=== PATIENT | male | born 1960 | race Two or more races ===

== ENCOUNTER 2017-07-08 17:06 | Inpatient (IN) | payer OTHER ==
[2017-07-08 17:44] VITALS: BMI 28.5
--- NOTE | 2017-07-08 20:57 | HP ---
COWS - Scale Resting Pulse: 2= [place] 101-120 Sweatin= Chills/Flushing Restless Observation: 0= Sits Still Pupil Size: 1= Pupils >than Normal Bone or Joint Aches: 4=Acute Joint/Muscle Pain Runny Nose/ Eye Tearin= Constantly Teary/Runny GI Upset > 30mins: 1= Stomach Cramp Tremor Observation: 2= Slight Tremor Visible Yawning Observation: 0= None Anxiety or Irritability: 2=Irritable/Anxious Goose Flesh Skin: 0=Smooth Skin COWS Score: 17 Admission ROS [facility] Chief Complaint: Opioid withdrawal symptoms Allergies/Adverse Reactions: Allergies Allergy/AdvReac Type Severity Reaction Status Date / Time No Known Allergies Allergy Verified 07/08/17 17:45 History of Present Illness: 56 years old male with a long history of opioid dependence is seeking admission to detox. Patient has never been to detox and reports insignificant period of sobriety. Patient has medical history of HTN, Hep. C, Gonorrhea, Tuberclosis (treated with INH) and depression. Denies suicide attempt and suicidal ideation at this time. Exam Limitations: No Limitations - Ebola screening Have you traveled outside of the country in the last 21 days: No Have you had contact with anyone from an Ebola affected area: No Have you been sick,other than usual withdrawal symptoms: No Do you have a fever: No - Review of Systems Constitutional: Chills, Loss of Appetite, Night Sweats, Changes in sleep EENT: reports: Nose Congestion Respiratory: reports: No Symptoms reported Cardiac: reports: No Symptoms Reported GI: reports: Nausea, Poor Appetite, Poor Fluid Intake, Abdominal cramping : reports: No Symptoms Reported Musculoskeletal: reports: Other (knee pain) Integumentary: reports: Flushing Neuro: reports: Tingling, Tremors Endocrine: reports: No Symptoms Reported Hematology: reports: No Symptoms Reported Psychiatric: reports: Anxious, Depressed Other Systems: Reviewed and Negative Patient History - Patient Medical History Hx Anemia: No Hx Asthma: No Hx Chronic Obstructive Pulmonary Disease (COPD): No Hx Cancer: No Hx Cardiac Disorders: No Hx Congestive Heart Failure: No Hx Hypertension: Yes (Not on medication) Hx Hypercholesterolemia: No Hx Pacemaker: No HX Cerebrovascular Accident: No Hx Seizures: No Hx Diabetes: No Hx Gastrointestinal Disorders: No Hx Liver Disease: Yes (Hep C - not treated) Hx Genitourinary Disorders: No Hx Sexually Transmitted Disorders: Yes (gonorrhea at age 18. - treated) Hx Renal Disease (ESRD): No Hx Thyroid Disease: No Hx Human Immunodeficiency Virus (HIV): No (Never tested and does not want to be tested) Hx Hepatitis C: Yes (Not treated) Hx Depression: Yes (Latuda) Hx Suicide Attempt: No (Denies suicidal ideation) Hx Bipolar Disorder: Yes Hx Schizophrenia: No - Patient Surgical History Past Surgical History: Yes Hx Neurologic Surgery: No Hx Cataract Extraction: No Hx Cardiac Surgery: No Hx Lung Surgery: No Hx Abdominal Surgery: No Hx Appendectomy: No Hx Cholecystectomy: No Hx Genitourinary Surgery: No Hx Orthopedic Surgery: Yes (Bilateral knee repalcement 2000) Anesthesia Reaction: No - PPD History Previous Implant?: Yes (Had TB . Hospitalized and treated with INH for 9 months) Documented Results: Positive w/o proof Implanted On Prior R Admission?: No PPD to be Administered?: No - Reproductive History Patient is a Female of Child Bearing Age (11 -55 yrs old): No (MALE) - Smoking Cessation Smoking history: Current every day smoker Aproximately how many cigarettes per day: 20 Hx Chewing Tobacco Use: No Initiated information on smoking cessation: Yes 'Breaking Loose' booklet given: 07/08/17 - Substance & Tx. History Hx Alcohol Use: No Hx Substance Use: Yes Substance Use Type: Cocaine, Heroin, Marijuana Hx Substance Use Treatment: No - Substances Abused Heroin Route: Inhalation Frequency: Daily Amount used: 8 bags Age of first use: 55 Date of Last Use: 07/08/17 Crack Route: Smoking Frequency: Daily Amount used: $300-400 Age of first use: 25 Date of Last Use: 07/07/17 Marijjauan Route: Smoking Frequency: Daily Amount used: $50 Age of first use: 7 Date of Last Use: 07/07/17 Family Disease History - Family Disease History Family History: Denies Admission Physical Exam BHS - Vital Signs Vital Signs: Vital Signs - 24 hr 07/08/17 17:39 Temperature 98.7 F Pulse Rate 110 H Respiratory 18 Rate Blood Pressure 138/88 - Physical General Appearance: Yes: Moderate Distress HEENTM: Yes: EOMI, Normal ENT Inspection, Normal Voice, ALFRED, Rhinorrhea Respiratory: Yes: Lungs Clear, Normal Breath Sounds, No Respiratory Distress Neck: Yes: Supple Breast: Yes: Breast Exam Deferred Cardiology: Yes: Regular Rhythm, Regular Rate, S1, S2 Abdominal: Yes: Normal Bowel Sounds, Soft Genitourinary: Yes: Within Normal Limits Back: Yes: Normal Inspection Musculoskeletal: Yes: Back pain, Muscle Pain Extremities: Yes: Tremors Neurological: Yes: Alert, Normal Mood/Affect Integumentary: Yes: Warm Lymphatic: Yes: Within Normal Limits - Diagnostic (1) Opioid dependence with withdrawal Current Visit: Yes Status: Chronic (2) Cocaine dependence, uncomplicated Current Visit: Yes Status: Chronic (3) Cannabis dependence, uncomplicated Current Visit: Yes Status: Chronic (4) Hep C w/o coma, chronic Current Visit: Yes Status: Chronic (5) HTN (hypertension) Current Visit: Yes Status: Chronic Qualifiers: Hypertension type: essential hypertension Qualified Code(s): I10 - Essential (primary) hypertension (6) Depression Current Visit: Yes Status: Chronic Qualifiers: Depression Type: unspecified Qualified Code(s): F32.9 - Major depressive disorder, single episode, unspecified (7) Nicotine dependence Current Visit: Yes Status: Chronic Cleared for Admission [facility] - Detox or Rehab [facility] Level of Care: Medically Managed Detox Regimen/Protocol: Methadone [facility] Breath Alcohol Content Breath Alcohol Content: 0 Urine Drug Screen - Results Drug Screen Negative: No Urine Drug Screen Results: THC-Marijuana, PRANAV-Cocaine, OPI-Opiates, TCA- Tricyclic Antidepress
[2017-07-08] MEDS ORDERED: P-EPHED 60MG/TRIPROLIDI 2.5MG TABLET PO PRN (21:16)
[2017-07-08] MEDS ORDERED: MENTHOL/PHENOL 1 EACH UD MM PRN (21:16)
[2017-07-08] MEDS ORDERED: MAG HYDROX/AL HYDROX/SIMETH 30 ML UNIT-DOSE CUP PO PRN (21:16)
[2017-07-08] MEDS ORDERED: MAGNESIUM HYDROX 2400MG/30ML ORAL SUSPENSION 30 ML CUP PO PRN (21:16)
[2017-07-08] MEDS ORDERED: ACETAMINOPHEN 325 MG TABLET (FP) PO PRN (21:16)
[2017-07-08] MEDS ORDERED: NICOTINE POLACRILEX 2 MG GUM BC PRN (21:16)
[2017-07-08] MEDS ORDERED: MAGNESIUM CITRATE 300 ML BOTTLE PO PRN (21:16)
[2017-07-08] MEDS ORDERED: guaiFENesin/D-METHORPHAN HB 10 ML UNIT-DOSE CUPS PO PRN (21:16)
[2017-07-08] MEDS ORDERED: LOPERAMIDE HCL 2 MG CAPSULE PO PRN (21:16)
[2017-07-08] MEDS ORDERED: IBUPROFEN 400 MG TABLET (FP) PO PRN (21:16)
[2017-07-08] MEDS ORDERED: METHADONE HCL 10 MG TABLET (FOR DETOX USE ONLY) PO ONE ×2 (21:16→23:00)
[2017-07-08] MEDS: diazePAM 5 MG TABLET PO PRN (21:55)
[2017-07-08] MEDS: THIAMINE HCL 100 MG TABLET (FP) PO SCH (21:56)
[2017-07-08 23:45] LABS: URINE APPEARANCE TURBID; URINE BILIRUBIN NEGATIVE (NEGATIVE); URINE BLOOD NEGATIVE (NEGATIVE); URINE COLOR YELLOW; URINE GLUCOSE (UA) NEGATIVE (NEGATIVE); URINE KETONE NEGATIVE (NEGATIVE); URINE LEUK ESTERASE NEGATIVE (NEGATIVE); URINE NITRITE NEGATIVE (NEGATIVE)
[2017-07-08 23:47] LABS: URINE PROTEIN 1+ (NEGATIVE)
[2017-07-09] MEDS ORDERED: hydrOXYzine PAMOATE 50 MG CAPSULE (FP) PO ONE (00:16)
[2017-07-09 00:54] LABS: URINE MUCUS MANY
[2017-07-09] MEDS ORDERED: METHADONE HCL 10 MG TABLET (FOR DETOX USE ONLY) PO ONE (10:00)
[2017-07-09 10:19] LABS: HEMATOCRIT 40.7 % (35.4-49); HEMOGLOBIN 13.9 GM/dL (11.7-16.9); MCH 27.9 pg (25.7-33.7); MEAN CELL VOLUME 82.1 fl (80-96); PLATELET COUNT 173 K/MM3 (134-434); RBC 4.96 M/mm3 (4.00-5.60); RDW 15.5 % (11.9-15.9); WHITE BLOOD COUNT 8.9 K/mm3 (4.0-10.0)
[2017-07-09 10:27] LABS: CHLORIDE 107 mmol/L (98-107); POTASSIUM 3.8 mmol/L (3.5-5.1); SODIUM 137 mmol/L (136-145)
--- NOTE | 2017-07-09 10:37 | CONSULT ---
[facility] Psychiatric Consult - Data Date of interview: 07/09/17 Admission source: [facility] Identifying data: First admission to [facility] for this 56 y/o [place] male from [place] ancestry seeking detox treatment on for heroin, cannabis and cocaine dependence.Patient is single,a father of four,domiciled, currently unemployed (disabled) and supported on SSI benefits. Substance Abuse History: Discussed with patient.Mr Norton admits to an 8 month history of heroin abuse (snorts one bundle daily) + cocaine abuse via smoking since age 25 (300-400 dollars a day) + 50 dollars/day on marihuana (from age 7 onwards).More details in current [facility] report : Smoking history: Current every day smoker. Aproximately how many cigarettes per day: 20. Hx Chewing Tobacco Use: No. Initiated information on smoking cessation: Yes. 'Breaking Loose' booklet given: 07/08/17. - Substance & Tx. History. Hx Alcohol Use: No. Hx Substance Use: Yes. Substance Use Type: Cocaine, Heroin, Marijuana. Hx Substance Use Treatment: No. - Substances Abused. Heroin. Route: Inhalation. Frequency: Daily. Amount used: 8 bags. Age of first use: 55. Date of Last Use: 07/08/17. Crack. Route: Smoking. Frequency: Daily. Amount used: $300-400. Age of first use: 25. Date of Last Use: 07/07/17. Marijjauan. Route: Smoking. Frequency: Daily. Amount used: $50. Age of first use: 7. Date of Last Use: 07/07/17 Medical History: Hypertension,hepatitis C,antecedent of tuberculosis ( hospitalized and treated with INH),past treatment for gonorrhea and orthosurgery (bilateral knee replacement in 2000). Psychiatric History: Patient reports a history of two psychiatric hospitalizations ([facility] in [facility] and [facility]).Diagnosed with Bipolar Disorder.Currently prescribed latuda 60 mg/hs + thorazine 200 mg/day + ambien 10 mg/hs.Mr Norton sees a psychiatrist,Dr Danika Raines, at the [facility] in [facility] [place].Denies history of suicide attempts. Physical/Sexual Abuse/Trauma History: Patient denies. Additional Comment: Urine Drug Screen Results: THC-Marijuana, PRANAV-Cocaine, OPI- Opiates, TCA-Tricyclic Antidepressant.Noted. Mental Status Exam - Mental Status Exam Alert and Oriented to: Time, Place, Person Cognitive Function: Good Patient Appearance: Well Groomed Mood: Apprehensive, Hopeful Affect: Appropriate, Normal Range Patient Behavior: Fatigued, Appropriate, Cooperative Speech Pattern: Clear, Appropriate Voice Loudness: Normal Thought Process: Goal Oriented Thought Disorder: Not Present Hallucinations: Denies Suicidal Ideation: Denies Homicidal Ideation: Denies Insight/Judgement: Poor Sleep: Poorly, Difficulty falling asleep Appetite: Good Muscle strength/Tone: Normal Gait/Station: Normal Psychiatric Findings - Problem List ([place] 1, 2,3) (1) Opioid dependence with withdrawal Current Visit: Yes Status: Acute (2) Cannabis dependence, uncomplicated Current Visit: Yes Status: Acute (3) Cocaine dependence, uncomplicated Current Visit: Yes Status: Acute (4) Nicotine dependence Current Visit: Yes Status: Acute Qualifiers: Nicotine product type: cigarettes Substance use status: uncomplicated Qualified Code(s): F17.210 - Nicotine dependence, cigarettes, uncomplicated (5) Bipolar disorder Current Visit: Yes Status: Chronic (6) Insomnia Current Visit: Yes Status: Acute - Initial Treatment Plan Initial Treatment Plan: Psychoeducation.Sleep hygiene discussed.Orientation to unit.Detoxification in progress.Medications : thorazine 200 mg po hs + latuda 40 mg po daily.Ambien is held until further orders.Side effects/benefits of both drugs are discussed with the patient.Mr Norton is in agreement with this plan of care.Observation.Medications are verified via review of pharmacy claims of 06/28/17 at [facility] # [id number].NO scripts needed at discharge from [facility] (patient endorses an available medication supply at home).Will get refills from his [facility] psychiatrist (appointment already scheduled as per patient) .
[2017-07-09 10:42] LABS: ALBUMIN 3.6 g/dl (3.4-5.0); ALK PHOS 119 U/L (45-117); ANION GAP 1 (8-16); BILIRUBIN,TOTAL 0.3 mg/dL (0.2-1.0); BLOOD UREA NITROGEN 22 mg/dL (7-18); CALCIUM 8.3 mg/dL (8.5-10.1); CO2 29 mmol/L (21-32); CREATININE 0.8 mg/dL (0.7-1.3); GLUCOSE,RANDOM 137 mg/dL (74-106); SGOT/AST 20 U/L (15-37); SGPT/ALT 35 U/L (12-78); TOT PROT 6.7 g/dl (6.4-8.2)
[2017-07-09] MEDS: PRENATAL VITAMINS W/ FOLIC ACID TABLET (FP) PO SCH (10:42)
[2017-07-09] MEDS: NICOTINE 14 MG/24 HOURS TOPICAL PATCH TD SCH (10:43)
[2017-07-09] MEDS: diazePAM 5 MG TABLET PO PRN ×2 (10:44→22:24)
[2017-07-09] MEDS ORDERED: FLU VACCINE QUAD 60 MCG/0.5 ML (MDV 17-18) IM ONE (12:00)
--- NOTE | 2017-07-09 13:00 | PN ---
BHS COWS - Scale Resting Pulse: 2= [place] 101-120 Sweatin= Chills/Flushing Restless Observation: 1= Difficult to Sit Still Pupil Size: 0= Normal to Room Light Bone or Joint Aches: 2= Severe Diffuse Aches Runny Nose/ Eye Tearin= None GI Upset > 30mins: 0= None Tremor Observation of Outstretched Hands: 2= Slight Tremor Visible Yawning Observation: 1= 1-2x During Session Anxiety or Irritability: 2=Irritable/Anxious Goose Flesh Skin: 3=Piloerection COWS Score: 14 BHS Progress Note (SOAP) Subjective: Body Aches, Sweating, Anxious, Diarrhea, Interrupted Sleep. Objective: PATIENT A & O X 3, OBSERVED AMBULATING ON UNIT. NO ACUTE DISTRESS. 07/09/17 13:01 Vital Signs Temperature 97.4 F L 07/09/17 09:47 Pulse Rate 107 H 07/09/17 09:47 Respiratory Rate 16 07/09/17 09:47 Blood Pressure 114/73 07/09/17 09:47 O2 Sat by Pulse Oximetry (%) Laboratory Tests 07/08/17 07/09/17 07/09/17 18:25 07:00 07:00 WBC 8.9 RBC 4.96 Hgb 13.9 Hct 40.7 MCV 82.1 MCH 27.9 MCHC 34.0 RDW 15.5 Plt Count 173 MPV 9.0 Sodium 137 Potassium 3.8 Chloride 107 Carbon Dioxide 29 Anion Gap 1 L BUN 22 H Creatinine 0.8 Creat Clearance w eGFR > 60 Random Glucose 137 H Calcium 8.3 L Total Bilirubin 0.3 AST 20 ALT 35 Alkaline Phosphatase 119 H Total Protein 6.7 Albumin 3.6 Urine Color Yellow Urine Appearance Turbid Urine pH 5.0 Ur Specific [place] 1.026 Urine Protein 1+ H Urine Glucose (UA) Negative Urine Ketones Negative Urine Blood Negative Urine Nitrite Negative Urine Bilirubin Negative Urine Urobilinogen 2.0 Ur Leukocyte Esterase Negative Urine WBC (Auto) None Urine RBC (Auto) None Urine Mucus Many RPR Titer 07/09/17 07:00 WBC RBC Hgb Hct MCV MCH MCHC RDW Plt Count MPV Sodium Potassium Chloride Carbon Dioxide Anion Gap BUN Creatinine Creat Clearance w eGFR Random Glucose Calcium Total Bilirubin AST ALT Alkaline Phosphatase Total Protein Albumin Urine Color Urine Appearance Urine pH Ur Specific [place] Urine Protein Urine Glucose (UA) Urine Ketones Urine Blood Urine Nitrite Urine Bilirubin Urine Urobilinogen Ur Leukocyte Esterase Urine WBC (Auto) Urine RBC (Auto) Urine Mucus RPR Titer Nonreactive LABS NOTED. Assessment: 07/09/17 13:01 WITHDRAWAL SYMPTOMS. Plan: CONTINUE DETOX.
[2017-07-09] MEDS ORDERED: chlorproMAZINE HCL 100 MG TABLET PO SCH (22:00)
[2017-07-09] MEDS: THIAMINE HCL 100 MG TABLET (FP) PO SCH (22:23)
[2017-07-09] MEDS ORDERED: chlorproMAZINE HCL 25 MG TABLET PO SCH (22:29)
[2017-07-09] MEDS: chlorproMAZINE HCL 25 MG TABLET PO SCH (23:55)
--- NOTE | 2017-07-10 01:01 | EKG ---
Test Reason : Blood Pressure : / mmHG Vent. Rate : 100 BPM Atrial Rate : 100 BPM P-R Int : 150 ms QRS Dur : 078 ms QT Int : 328 ms P-R-T Axes : 038 071 044 degrees QTc Int : 423 ms NORMAL SINUS RHYTHM NONSPECIFIC T WAVE ABNORMALITY ABNORMAL ECG NO PREVIOUS ECGS AVAILABLE Confirmed by MARIANELA VELASQUEZ, FÉLIX ([id number]) on 07/10/2017 1:01:10 AM Referred By: Confirmed By:FÉLIX BEAR MD
[2017-07-10] MEDS: diazePAM 5 MG TABLET PO PRN ×5 (06:17→23:31)
[2017-07-10] MEDS ORDERED: METHADONE HCL 5 MG TABLET (FOR DETOX USE ONLY) PO ONE (10:00)
[2017-07-10] MEDS ORDERED: LURASIDONE HCL 20 MG TABLET PO SCH (10:00)
[2017-07-10] MEDS: PRENATAL VITAMINS W/ FOLIC ACID TABLET (FP) PO SCH (10:22)
[2017-07-10] MEDS: LURASIDONE HCL 40 MG TABLET PO SCH (10:23)
[2017-07-10] MEDS: NICOTINE 14 MG/24 HOURS TOPICAL PATCH TD SCH (10:24)
--- NOTE | 2017-07-10 12:59 | PN ---
BHS COWS - Scale Resting Pulse: 2= [place] 101-120 Sweatin= Chills/Flushing Restless Observation: 1= Difficult to Sit Still Pupil Size: 0= Normal to Room Light Bone or Joint Aches: 2= Severe Diffuse Aches Runny Nose/ Eye Tearin= None GI Upset > 30mins: 2= Nausea/Diarrhea Tremor Observation of Outstretched Hands: 2= Slight Tremor Visible Yawning Observation: 2= >3x During Session Anxiety or Irritability: 2=Irritable/Anxious Goose Flesh Skin: 0=Smooth Skin COWS Score: 14 BHS Progress Note (SOAP) Subjective: Body Aches, Tremors, Anxious, Sweating, Vomiting, Stomach Cramping. Objective: PATIENT A & O X 2 (UNCERTAIN ABOUT CURRENT DAY/ DATE. NO ACUTE DISTRESS. 07/10/17 12:57 Vital Signs Temperature 96.5 F L 07/10/17 09:51 Pulse Rate 106 H 07/10/17 09:51 Respiratory Rate 20 07/10/17 09:51 Blood Pressure 128/82 07/10/17 09:51 O2 Sat by Pulse Oximetry (%) Laboratory Tests 07/08/17 07/09/17 07/09/17 18:25 07:00 07:00 WBC 8.9 RBC 4.96 Hgb 13.9 Hct 40.7 MCV 82.1 MCH 27.9 MCHC 34.0 RDW 15.5 Plt Count 173 MPV 9.0 Sodium 137 Potassium 3.8 Chloride 107 Carbon Dioxide 29 Anion Gap 1 L BUN 22 H Creatinine 0.8 Creat Clearance w eGFR > 60 Random Glucose 137 H Calcium 8.3 L Total Bilirubin 0.3 AST 20 ALT 35 Alkaline Phosphatase 119 H Total Protein 6.7 Albumin 3.6 Urine Color Yellow Urine Appearance Turbid Urine pH 5.0 Ur Specific [place] 1.026 Urine Protein 1+ H Urine Glucose (UA) Negative Urine Ketones Negative Urine Blood Negative Urine Nitrite Negative Urine Bilirubin Negative Urine Urobilinogen 2.0 Ur Leukocyte Esterase Negative Urine WBC (Auto) None Urine RBC (Auto) None Urine Mucus Many RPR Titer 07/09/17 07:00 WBC RBC Hgb Hct MCV MCH MCHC RDW Plt Count MPV Sodium Potassium Chloride Carbon Dioxide Anion Gap BUN Creatinine Creat Clearance w eGFR Random Glucose Calcium Total Bilirubin AST ALT Alkaline Phosphatase Total Protein Albumin Urine Color Urine Appearance Urine pH Ur Specific [place] Urine Protein Urine Glucose (UA) Urine Ketones Urine Blood Urine Nitrite Urine Bilirubin Urine Urobilinogen Ur Leukocyte Esterase Urine WBC (Auto) Urine RBC (Auto) Urine Mucus RPR Titer Nonreactive LABS NOTED. Assessment: 07/10/17 12:58 WITHDRAWAL SYMPTOMS. Plan: CONTINUE DETOX.
[2017-07-10] MEDS: chlorproMAZINE HCL 25 MG TABLET PO SCH (22:10)
[2017-07-10] MEDS: THIAMINE HCL 100 MG TABLET (FP) PO SCH (22:10)
[2017-07-11] MEDS: diazePAM 5 MG TABLET PO PRN ×4 (05:40→21:08)
[2017-07-11] MEDS ORDERED: METHADONE HCL 5 MG TABLET (FOR DETOX USE ONLY) PO ONE (10:00)
[2017-07-11] MEDS: LURASIDONE HCL 40 MG TABLET PO SCH (10:30)
[2017-07-11] MEDS: PRENATAL VITAMINS W/ FOLIC ACID TABLET (FP) PO SCH (10:30)
[2017-07-11] MEDS: NICOTINE 14 MG/24 HOURS TOPICAL PATCH TD SCH (10:30)
--- NOTE | 2017-07-11 14:32 | PN ---
BHS Progress Note (SOAP) Subjective: Tremors, Anxious. Objective: PATIENT A & O X 3, OBSERVED AMBULATING ON UNIT. NO ACUTE DISTRESS. 07/11/17 14:28 Vital Signs Temperature 96.3 F L 07/11/17 13:53 Pulse Rate 98 H 07/11/17 13:53 Respiratory Rate 19 07/11/17 13:53 Blood Pressure 137/86 07/11/17 13:53 O2 Sat by Pulse Oximetry (%) Laboratory Tests 07/08/17 07/09/17 07/09/17 18:25 07:00 07:00 WBC 8.9 RBC 4.96 Hgb 13.9 Hct 40.7 MCV 82.1 MCH 27.9 MCHC 34.0 RDW 15.5 Plt Count 173 MPV 9.0 Sodium 137 Potassium 3.8 Chloride 107 Carbon Dioxide 29 Anion Gap 1 L BUN 22 H Creatinine 0.8 Creat Clearance w eGFR > 60 Random Glucose 137 H Calcium 8.3 L Total Bilirubin 0.3 AST 20 ALT 35 Alkaline Phosphatase 119 H Total Protein 6.7 Albumin 3.6 Urine Color Yellow Urine Appearance Turbid Urine pH 5.0 Ur Specific [place] 1.026 Urine Protein 1+ H Urine Glucose (UA) Negative Urine Ketones Negative Urine Blood Negative Urine Nitrite Negative Urine Bilirubin Negative Urine Urobilinogen 2.0 Ur Leukocyte Esterase Negative Urine WBC (Auto) None Urine RBC (Auto) None Urine Mucus Many RPR Titer 07/09/17 07:00 WBC RBC Hgb Hct MCV MCH MCHC RDW Plt Count MPV Sodium Potassium Chloride Carbon Dioxide Anion Gap BUN Creatinine Creat Clearance w eGFR Random Glucose Calcium Total Bilirubin AST ALT Alkaline Phosphatase Total Protein Albumin Urine Color Urine Appearance Urine pH Ur Specific [place] Urine Protein Urine Glucose (UA) Urine Ketones Urine Blood Urine Nitrite Urine Bilirubin Urine Urobilinogen Ur Leukocyte Esterase Urine WBC (Auto) Urine RBC (Auto) Urine Mucus RPR Titer Nonreactive LABS NOTED. Assessment: 07/11/17 14:29 WITHDRAWAL SYMPTOMS. Plan: CONTINUE DETOX. INCREASE DAILY PO FLUID INTAKE. PATIENT REPORTS THAT SEVERITY LEVEL OF CURRENT DETOX SYMPTOMS IS TOLERABLE AND THAT HE FEELS WELL OVERALL. AT PATIENT'S REQUEST, CURRENT DETOX MEDICATION REGIMEN (METHADONE) MODIFIED SO THAT PATIENT MAY BE DISCHARGED ON 07/12/2017.
[2017-07-11] MEDS: THIAMINE HCL 100 MG TABLET (FP) PO SCH (22:24)
[2017-07-11] MEDS: chlorproMAZINE HCL 25 MG TABLET PO SCH (22:24)
[2017-07-12] MEDS ORDERED: METHADONE HCL 5 MG TABLET (FOR DETOX USE ONLY) PO ONE (06:00)
[2017-07-12 06:40] VITALS: BP 125/79; PULSE 90; TEMP 96.7
[2017-07-12] MEDS ORDERED: METHADONE HCL 10 MG TABLET (FOR DETOX USE ONLY) PO ONE (10:00)
--- NOTE | 2017-07-12 19:41 | PN ---
BHS Progress Note (SOAP) Subjective: Patient denies any current detox symptoms and reports that he is feeling well overall. Objective: PATIENT A & O X 3. NO ACUTE DISTRESS. 07/12/17 19:39 Vital Signs Temperature 96.7 F L 07/12/17 06:39 Pulse Rate 90 07/12/17 06:39 Respiratory Rate 18 07/12/17 06:39 Blood Pressure 125/79 07/12/17 06:39 O2 Sat by Pulse Oximetry (%) Laboratory Tests 07/08/17 07/09/17 07/09/17 18:25 07:00 07:00 WBC 8.9 RBC 4.96 Hgb 13.9 Hct 40.7 MCV 82.1 MCH 27.9 MCHC 34.0 RDW 15.5 Plt Count 173 MPV 9.0 Sodium 137 Potassium 3.8 Chloride 107 Carbon Dioxide 29 Anion Gap 1 L BUN 22 H Creatinine 0.8 Creat Clearance w eGFR > 60 Random Glucose 137 H Calcium 8.3 L Total Bilirubin 0.3 AST 20 ALT 35 Alkaline Phosphatase 119 H Total Protein 6.7 Albumin 3.6 Urine Color Yellow Urine Appearance Turbid Urine pH 5.0 Ur Specific [place] 1.026 Urine Protein 1+ H Urine Glucose (UA) Negative Urine Ketones Negative Urine Blood Negative Urine Nitrite Negative Urine Bilirubin Negative Urine Urobilinogen 2.0 Ur Leukocyte Esterase Negative Urine WBC (Auto) None Urine RBC (Auto) None Urine Mucus Many RPR Titer 07/09/17 07:00 WBC RBC Hgb Hct MCV MCH MCHC RDW Plt Count MPV Sodium Potassium Chloride Carbon Dioxide Anion Gap BUN Creatinine Creat Clearance w eGFR Random Glucose Calcium Total Bilirubin AST ALT Alkaline Phosphatase Total Protein Albumin Urine Color Urine Appearance Urine pH Ur Specific [place] Urine Protein Urine Glucose (UA) Urine Ketones Urine Blood Urine Nitrite Urine Bilirubin Urine Urobilinogen Ur Leukocyte Esterase Urine WBC (Auto) Urine RBC (Auto) Urine Mucus RPR Titer Nonreactive LABS NOTED. Assessment: 07/12/17 19:39 COMPLETION OF DETOX REGIMEN. Plan: PATIENT SCHEDULED FOR DISCHARGE FROM DETOX TODAY. PATIENT WILL ATTEND OUTPATIENT PROGRAM AT [facility] ([place], [place] FOR AFTERCARE.
--- NOTE | 2017-07-12 19:46 | DS ---
[facility] Detox Discharge Summary Admission Date: 07/08/17 Discharge Date: 07/12/17 - History Present History: Cannabis Dependence, Cocaine Dependence, Opioid Dependence Additional Comments: PATIENT GOING HOME, WILL ATTEND [facility] ([place] OUTPATIENT PROGRAM FOR AFTERCARE. PATIENT WAS DISCHARGED FROM DETOX UNIT IN STABLE MEDICAL CONDITION. Pertinent Past History: HTN, Depression, Nicotine Dependence, Hep C, Bipolar Disorder, Insomnia. - Physical Exam Results Vital Signs: Vital Signs Temperature 96.7 F L 07/12/17 06:39 Pulse Rate 90 07/12/17 06:39 Respiratory Rate 18 07/12/17 06:39 Blood Pressure 125/79 07/12/17 06:39 O2 Sat by Pulse Oximetry (%) Pertinent Admission Physical Exam Findings: WITHDRAWAL SYMPTOMS. Laboratory Tests 07/08/17 07/09/17 07/09/17 18:25 07:00 07:00 WBC 8.9 RBC 4.96 Hgb 13.9 Hct 40.7 MCV 82.1 MCH 27.9 MCHC 34.0 RDW 15.5 Plt Count 173 MPV 9.0 Sodium 137 Potassium 3.8 Chloride 107 Carbon Dioxide 29 Anion Gap 1 L BUN 22 H Creatinine 0.8 Creat Clearance w eGFR > 60 Random Glucose 137 H Calcium 8.3 L Total Bilirubin 0.3 AST 20 ALT 35 Alkaline Phosphatase 119 H Total Protein 6.7 Albumin 3.6 Urine Color Yellow Urine Appearance Turbid Urine pH 5.0 Ur Specific [place] 1.026 Urine Protein 1+ H Urine Glucose (UA) Negative Urine Ketones Negative Urine Blood Negative Urine Nitrite Negative Urine Bilirubin Negative Urine Urobilinogen 2.0 Ur Leukocyte Esterase Negative Urine WBC (Auto) None Urine RBC (Auto) None Urine Mucus Many RPR Titer 07/09/17 07:00 WBC RBC Hgb Hct MCV MCH MCHC RDW Plt Count MPV Sodium Potassium Chloride Carbon Dioxide Anion Gap BUN Creatinine Creat Clearance w eGFR Random Glucose Calcium Total Bilirubin AST ALT Alkaline Phosphatase Total Protein Albumin Urine Color Urine Appearance Urine pH Ur Specific [place] Urine Protein Urine Glucose (UA) Urine Ketones Urine Blood Urine Nitrite Urine Bilirubin Urine Urobilinogen Ur Leukocyte Esterase Urine WBC (Auto) Urine RBC (Auto) Urine Mucus RPR Titer Nonreactive LABS NOTED. - Treatment Hospital Course: Detox Protocol Followed, Detoxed Safely, Responded well, Discharged Condition Good Patient has Accepted a Rehab Referral to: [facility] OUTPATIENT PROGRAM ([place], [place]) - Medication Discharge Medications: Ambulatory Orders Lurasidone HCl [Latuda] 60 mg PO DAILY 07/08/17 - Diagnosis (1) Cannabis dependence, uncomplicated Status: Acute (2) Cocaine dependence, uncomplicated Status: Acute (3) Nicotine dependence Status: Acute Qualifiers: Nicotine product type: cigarettes Substance use status: uncomplicated Qualified Code(s): F17.210 - Nicotine dependence, cigarettes, uncomplicated (4) Opioid dependence with withdrawal Status: Acute (5) Depression Status: Chronic Qualifiers: Depression Type: unspecified Qualified Code(s): F32.9 - Major depressive disorder, single episode, unspecified (6) HTN (hypertension) Status: Chronic Qualifiers: Hypertension type: essential hypertension Qualified Code(s): I10 - Essential (primary) hypertension (7) Hep C w/o coma, chronic Status: Chronic (8) Insomnia Status: Acute Qualifiers: Insomnia type: unspecified Qualified Code(s): G47.00 - Insomnia, unspecified (9) Bipolar disorder Status: Chronic Qualifiers: Active/Remission status: remission status unspecified Qualified Code(s): F31.9 - Bipolar disorder, unspecified - AMA Did Patient Leave Against Medical Advice: No
[2017-07-13] MEDS ORDERED: METHADONE HCL 5 MG TABLET (FOR DETOX USE ONLY) PO ONE (06:00)
== END 2017-07-12 09:32 | disposition home or self-care (01) | DRG 773 ==
LOC: YASAS 17:06 → Y3N 20:50
PROVIDERS: ADMIT Internal Medicine; ATTEND Internal Medicine
PROC: HZ2ZZZZ Detoxification Services for Substance Abuse Treatment (ICD-10-PCS; principal; 2017-07-09)
DX: F11.23 Opioid dependence with withdrawal (principal); F14.20 Cocaine dependence, uncomplicated; F12.20 Cannabis dependence, uncomplicated; F17.210 Nicotine dependence, cigarettes, uncomplicated; F31.9 Bipolar disorder, unspecified; I10 Essential (primary) hypertension; G47.00 Insomnia, unspecified; B18.2 Chronic viral hepatitis C
CPT/HCPCS: 36415; 71046-TC-FY; 80053; 81003; 81015; 85027; 86593; 90688; 93005; 93010; G0008

== ENCOUNTER 2017-11-21 17:51 | Inpatient (IN) | payer OTHER ==
[2017-11-21 18:47] VITALS: BMI 26.4
--- NOTE | 2017-11-21 22:06 | HP ---
COWS - Scale Resting Pulse: 2= MT 101-120 Sweatin= Beads of Sweat on Face Restless Observation: 5= Unable to Sit Still Pupil Size: 1= Pupils >than Normal Bone or Joint Aches: 4=Acute Joint/Muscle Pain Runny Nose/ Eye Tearin= Nasal Congestion GI Upset > 30mins: 2= Nausea/Diarrhea Tremor Observation: 2= Slight Tremor Visible Yawning Observation: 0= None Anxiety or Irritability: 4=Extreme Anxiety Goose Flesh Skin: 0=Smooth Skin COWS Score: 24 CIWA Score - CIWA Score Nausea/Vomitin-No Nausea/No Vomiting Muscle Tremors: 4-Moderate,w/Arms Extend Anxiety: 5 Agitation: 4-Moderately Restless Paroxysmal Sweats: 4-Forehead w/Sweat Beads Orientation: 0-Oriented Tacttile Disturbances: 3-Moderate Itch/Numb/Burn Auditory Disturbances: 0-None Visual Disturbances: 0-None Headache: 0-None Present CIWA-Ar Total Score: 20 Admission [facility] - HPI Chief Complaint: C/O WITHDRAWAL SX'S FROM HEROIN Allergies/Adverse Reactions: Allergies Allergy/AdvReac Type Severity Reaction Status Date / Time No Known Allergies Allergy Verified 11/21/17 21:57 History of Present Illness: 57 Y.O. MALE WITH LONG HX/O POLYSUBSTANCE ABUSE HERE FOR HEROIN DETOX. CLIENT IS KNOWN TO THIS PROGRAM. LAST HERE A FEW MONTHS AGO. SELF REFERRED. REPORTS LONGEST CLEAN TIME 6 YEARS. REPORTS PAST HX OF DRUG OVERDOSE. DENIES SI/HI, SEIZURE Exam Limitations: No Limitations - Ebola screening Have you traveled outside of the country in the last 21 days: No Have you had contact with anyone from an Ebola affected area: No Have you been sick,other than usual withdrawal symptoms: No Do you have a fever: No - Review of Systems Constitutional: Chills, Diaphoresis, Loss of Appetite, Malaise, Night Sweats, Changes in sleep, Unintentional Wgt. Loss EENT: reports: Nose Congestion, Dental Problems (MISSING TEETH) Respiratory: reports: No Symptoms reported Cardiac: reports: No Symptoms Reported GI: reports: Poor Appetite, Poor Fluid Intake, Abdominal cramping : reports: No Symptoms Reported Musculoskeletal: reports: Back Pain Integumentary: reports: Flushing, Sweating Neuro: reports: No Symptoms reported Endocrine: reports: No Symptoms Reported Hematology: reports: No Symptoms Reported Psychiatric: reports: Anxious, Depressed Other Systems: Reviewed and Negative Patient History - Patient Medical History Hx Anemia: No Hx Asthma: No Hx Chronic Obstructive Pulmonary Disease (COPD): No Hx Cancer: No Hx Cardiac Disorders: No Hx Congestive Heart Failure: No Hx Hypertension: Yes (Not on medication) Hx Hypercholesterolemia: No Hx Pacemaker: No HX Cerebrovascular Accident: No Hx Seizures: No Hx Diabetes: No Hx Gastrointestinal Disorders: No Hx Liver Disease: Yes (Hep C - not treated) Hx Genitourinary Disorders: No Hx Sexually Transmitted Disorders: Yes (gonorrhea at age 18. - treated) Hx Renal Disease (ESRD): No Hx Thyroid Disease: No Hx Human Immunodeficiency Virus (HIV): No (Never tested and does not want to be tested) Hx Hepatitis C: Yes (Not treated) Hx Depression: Yes (Latuda) Hx Suicide Attempt: Yes (FEW MONTHS AGO) Hx Bipolar Disorder: Yes Hx Schizophrenia: No Other Medical History: DENIES - Patient Surgical History Past Surgical History: Yes Hx Neurologic Surgery: No Hx Cataract Extraction: No Hx Cardiac Surgery: No Hx Lung Surgery: No Hx Breast Surgery: No Hx Breast Biopsy: No Hx Abdominal Surgery: No Hx Appendectomy: No Hx Cholecystectomy: No Hx Genitourinary Surgery: No Hx Section: No Hx Orthopedic Surgery: Yes (Bilateral knee repalcement 2000) Anesthesia Reaction: No - PPD History Previous Implant?: Yes Documented Results: Positive w/o proof Implanted On Prior [facility] Admission?: No Results: NEG CXR 06/2017 PPD to be Administered?: No - Smoking Cessation Smoking history: Current every day smoker Aproximately how many cigarettes per day: 20 Cigars Per Day: 0 Hx Chewing Tobacco Use: No Initiated information on smoking cessation: Yes 'Breaking Loose' booklet given: 11/21/17 - Substance & Tx. History Hx Alcohol Use: Yes Hx Substance Use: Yes Substance Use Type: Alcohol Hx Substance Use Treatment: Yes ([facility]) - Substances Abused Heroin Route: SNIFF Frequency: Daily Amount used: 2 BUNDLE Age of first use: 29 Date of Last Use: 11/20/17 Cocaine Route: Smoking Frequency: Daily Amount used: 2 OZ Age of first use: 17 Date of Last Use: 11/21/17 Marijuana/Hashish Route: Smoking Frequency: Daily Amount used: 2 JOIN Age of first use: 17 Date of Last Use: 11/21/17 LIQUOR Route: Oral Frequency: Daily Amount used: 2 QUARTS Age of first use: 11 Date of Last Use: 11/21/17 Family Disease History - Family Disease History Family Disease History: Other: Brother (SUICIDE/ ALCOHOLISM) Admission Physical Exam S - Vital Signs Vital Signs: Vital Signs - 24 hr 11/21/17 18:45 Temperature 98.7 F Pulse Rate 110 H Respiratory 18 Rate Blood Pressure 125/74 - Physical General Appearance: Yes: Disheveled, Moderate Distress, Tremorous, Irritable, Sweating, Anxious HEENTM: Yes: EOMI, Normocephalic, Normal Voice, ALFRED (DIALATED), Pharynx Normal , Nasal Congestion, Other (POOR DENTITION) Respiratory: Yes: Chest Non-Tender, Lungs Clear, Normal Breath Sounds, No Respiratory Distress, No Accessory Muscle Use Neck: Yes: No masses,lesions,Nodules, Supple Breast: Yes: Breast Exam Deferred Cardiology: Yes: Regular Rhythm, Regular Rate, S1, S2 Abdominal: Yes: Normal Bowel Sounds, Non Tender, Soft Genitourinary: Yes: Within Normal Limits Back: Yes: Normal Inspection Musculoskeletal: Yes: Gait Steady, Back pain (C/O) Extremities: Yes: Normal Capillary Refill, Normal Range of Motion, Non-Tender, Tremors Neurological: Yes: Fully Oriented, Alert Integumentary: Yes: Warm, Diaphoresis, Moist Lymphatic: Yes: Within Normal Limits - Diagnostic (1) Cannabis dependence, uncomplicated Current Visit: Yes Status: Chronic (2) Cocaine dependence, uncomplicated Current Visit: Yes Status: Chronic (3) Insomnia Current Visit: Yes Status: Suspected Qualifiers: Insomnia type: unspecified Qualified Code(s): G47.00 - Insomnia, unspecified (4) Nicotine dependence Current Visit: Yes Status: Chronic Qualifiers: Nicotine product type: cigarettes Substance use status: uncomplicated Qualified Code(s): F17.210 - Nicotine dependence, cigarettes, uncomplicated (5) Opioid dependence with withdrawal Current Visit: Yes Status: Acute (6) Bipolar disorder Current Visit: Yes Status: Chronic Qualifiers: Active/Remission status: remission status unspecified Qualified Code(s): F31.9 - Bipolar disorder, unspecified (7) Depression Current Visit: Yes Status: Chronic Qualifiers: Depression Type: unspecified Qualified Code(s): F32.9 - Major depressive disorder, single episode, unspecified (8) HTN (hypertension) Current Visit: Yes Status: Chronic Qualifiers: Hypertension type: essential hypertension Qualified Code(s): I10 - Essential (primary) hypertension (9) Hep C w/o coma, chronic Current Visit: Yes Status: Chronic Cleared for Admission [facility] - Detox or Rehab [facility] Level of Care: Medically Managed Detox Regimen/Protocol: Methadone/Librium Claeared for Rehab Admission: No [facility] Breath Alcohol Content Breath Alcohol Content: 0.025 Urine Drug Screen - Results Drug Screen Negative: No Urine Drug Screen Results: THC-Marijuana, PRANAV-Cocaine, OPI-Opiates, TCA- Tricyclic Antidepress
[2017-11-21] MEDS ORDERED: NICOTINE POLACRILEX 2 MG GUM BC PRN (22:16)
[2017-11-21] MEDS ORDERED: LOPERAMIDE HCL 2 MG CAPSULE PO PRN (22:16)
[2017-11-21] MEDS ORDERED: MAGNESIUM CITRATE 300 ML BOTTLE PO PRN (22:16)
[2017-11-21] MEDS ORDERED: MAG HYDROX/AL HYDROX/SIMETH 30 ML UNIT-DOSE CUP PO PRN (22:16)
[2017-11-21] MEDS ORDERED: IBUPROFEN 400 MG TABLET (FP) PO PRN (22:16)
[2017-11-21] MEDS ORDERED: MAGNESIUM HYDROX 2400MG/30ML ORAL SUSPENSION 30 ML CUP PO PRN (22:16)
[2017-11-21] MEDS ORDERED: ACETAMINOPHEN 325 MG TABLET (FP) PO PRN (22:16)
[2017-11-21] MEDS ORDERED: P-EPHED 60MG/TRIPROLIDI 2.5MG TABLET PO PRN (22:16)
[2017-11-21] MEDS ORDERED: MENTHOL/PHENOL 1 EACH UD MM PRN (22:16)
[2017-11-21] MEDS ORDERED: METHADONE HCL 10 MG TABLET (FOR DETOX USE ONLY) PO ONE ×2 (22:45→23:00)
[2017-11-21] MEDS: chlordiazePOXIDE HCL 25 MG CAPSULE PO SCH (23:52)
[2017-11-22] MEDS: chlordiazePOXIDE HCL 25 MG CAPSULE PO PRN ×4 (01:58→19:40)
[2017-11-22] MEDS: chlordiazePOXIDE HCL 25 MG CAPSULE PO SCH ×4 (05:17→22:08)
[2017-11-22] MEDS: guaiFENesin/D-METHORPHAN HB 10 ML UNIT-DOSE CUPS PO PRN ×3 (07:34→20:51)
[2017-11-22] MEDS: PRENATAL VITAMINS W/ FOLIC ACID TABLET (FP) PO SCH (09:40)
[2017-11-22] MEDS: NICOTINE 21 MG/24 HOURS TOPICAL PATCH TD SCH (09:41)
[2017-11-22] MEDS ORDERED: METHADONE HCL 10 MG TABLET (FOR DETOX USE ONLY) PO SCH (10:00)
[2017-11-22 10:05] LABS: HEMATOCRIT 39.9 % (35.4-49); HEMOGLOBIN 13.6 GM/dL (11.7-16.9); MCH 28.4 pg (25.7-33.7); MCHC 34.1 g/dl (32.0-35.9); MEAN CELL VOLUME 83.2 fl (80-96); MEAN PLT VOLUME 9.1 fl (7.5-11.1); PLATELET COUNT 203 K/MM3 (134-434); RBC 4.79 M/mm3 (4.00-5.60); RDW 14.3 % (11.9-15.9); WHITE BLOOD COUNT 10.6 K/mm3 (4.0-10.0)
[2017-11-22 10:54] LABS: CHLORIDE 104 mmol/L (98-107); SODIUM 140 mmol/L (136-145)
[2017-11-22 11:14] LABS: ALBUMIN 3.5 g/dl (3.4-5.0); ALK PHOS 91 U/L (45-117); ANION GAP 8 (8-16); BILIRUBIN,TOTAL 0.8 mg/dL (0.2-1.0); BLOOD UREA NITROGEN 28 mg/dL (7-18); CALCIUM 8.6 mg/dL (8.5-10.1); CO2 28 mmol/L (21-32); GLUCOSE,RANDOM 112 mg/dL (74-106); SGOT/AST 23 U/L (15-37); SGPT/ALT 28 U/L (12-78); TOT PROT 6.8 g/dl (6.4-8.2)
--- NOTE | 2017-11-22 12:34 | PN ---
[facility] CIWA - CIWA Score Nausea/Vomitin-No Nausea/No Vomiting Muscle Tremors: 4-Moderate,w/Arms Extend Anxiety: 4-Mod. Anxious/Guarded Agitation: 2 Paroxysmal Sweats: No Perspiration Orientation: 0-Oriented Tacttile Disturbances: 2-Mild Itch/Numbness/Burn Auditory Disturbances: 2-Mild Harshness/Frighten Visual Disturbances: 2-Mild Sensitivity Headache: 0-None Present CIWA-Ar Total Score: 16 [facility] COWS - Scale Resting Pulse: 1= HI 81-100 Sweatin= No chills or Flushing Restless Observation: 1= Difficult to Sit Still Pupil Size: 0= Normal to Room Light Bone or Joint Aches: 2= Severe Diffuse Aches Runny Nose/ Eye Tearin= Nasal Congestion GI Upset > 30mins: 0= None Tremor Observation of Outstretched Hands: 2= Slight Tremor Visible Yawning Observation: 1= 1-2x During Session Anxiety or Irritability: 2=Irritable/Anxious Goose Flesh Skin: 3=Piloerection COWS Score: 13 S Progress Note (SOAP) Subjective: Tremors, Fatigue, Interrupted Sleep, Body Aches, Anxious. Objective: PATIENT A & O X 3, OBSERVED AMBULATING ON UNIT. NO ACUTE DISTRESS. 11/22/17 12:31 Vital Signs Temperature 98.4 F 11/22/17 09:50 Pulse Rate 90 11/22/17 09:50 Respiratory Rate 18 11/22/17 09:50 Blood Pressure 119/56 11/22/17 09:50 O2 Sat by Pulse Oximetry (%) Laboratory Tests 11/22/17 11/22/17 07:40 07:40 WBC 10.6 H RBC 4.79 Hgb 13.6 Hct 39.9 MCV 83.2 MCH 28.4 MCHC 34.1 RDW 14.3 Plt Count 203 MPV 9.1 Sodium 140 Potassium 4.0 Chloride 104 Carbon Dioxide 28 Anion Gap 8 BUN 28 H Creatinine 1.0 Creat Clearance w eGFR > 60 Random Glucose 112 H Calcium 8.6 Total Bilirubin 0.8 AST 23 ALT 28 Alkaline Phosphatase 91 Total Protein 6.8 Albumin 3.5 LABS NOTED. UA, RPR RESULTS PENDING. 11/22/17 12:33 Assessment: 11/22/17 12:32 WITHDRAWAL SYMPTOMS. Plan: CONTINUE DETOX. INCREASE DAILY PO FLUID INTAKE.
[2017-11-22] MEDS: CYCLOBENZAPRINE HCL 10 MG TABLET (FP) PO PRN ×2 (15:17→22:08)
--- NOTE | 2017-11-22 15:55 | CONSULT ---
[facility] Psychiatric Consult - Data Date of interview: 11/22/17 Admission source: [facility] Identifying data: Readmission to [facility] for this 57 y/o [place] male from [place] ancestry seeking detox treatment on for heroin,cannabis and cocaine dependence.Patient is single,a father of six (claimed four at a previous encounter),domiciled,currently unemployed (disabled) and supported on SSI benefits. Substance Abuse History: Confirmed by the patient in this interview.Smoking history: Current every day smoker. Aproximately how many cigarettes per day: 20. Cigars Per Day: 0. Hx Chewing Tobacco Use: No. Initiated information on smoking cessation: Yes. 'Breaking Loose' booklet given: 11/21/17. - Substance & Tx. History. Hx Alcohol Use: Yes. Hx Substance Use: Yes. Substance Use Type : Alcohol. Hx Substance Use Treatment: Yes ([facility] - Substances Abused. Heroin. Route: SNIFF. Frequency: Daily. Amount used: 2 BUNDLE. Age of first use: 29. Date of Last Use: 11/20/17. Cocaine. Route: Smoking. Frequency: Daily. Amount used: 2 OZ. Age of first use: 17. Date of Last Use: 11/21/17. Marijuana/Hashish. Route: Smoking. Frequency: Daily. Amount used: 2 JOIN. Age of first use: 17. Date of Last Use: 11/21/17. LIQUOR. Route: Oral. Frequency: Daily. Amount used: 2 QUARTS. Age of first use: 11. 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 Psychiatric History: Patient admits to a history of 7-8 psychiatric hospitalizations ([facility] in [facility] and [facility]).Diagnosed with Bipolar Disorder.Currently prescribed latuda 60 mg/hs + cogentin 1 mg/day + ambien 10 mg /hs.Non-adherent to his medications, as per self-report.Mr Norton reports that he used to see a psychiatrist, Dr Danika Raines, at the [facility] in [place].Stopped going to the [facility] clinic as per self-report (survey of recent pharmacy claims show refills for his medications issued on 10/25/17 at [facility] # [id number]).Patient endorses a recent history of a suicide attempt via self-mutilation (cut left wrist about a month ago). Physical/Sexual Abuse/Trauma History: Patient denies. Additional Comment: Urine Drug Screen Results: THC-Marijuana, PRANAV-Cocaine, OPI- Opiates, TCA-Tricyclic Antidepressant.Noted. Mental Status Exam - Mental Status Exam Alert and Oriented to: Time, Place, Person Cognitive Function: Good Patient Appearance: Well Groomed Mood: Withdrawn, Hopeful Affect: Normal Range Patient Behavior: Fatigued, Appropriate Speech Pattern: Clear, Appropriate Voice Loudness: Normal Thought Process: Goal Oriented Thought Disorder: Not Present Hallucinations: Denies Suicidal Ideation: Denies Homicidal Ideation: Denies Insight/Judgement: Poor Sleep: Poorly, Difficulty falling asleep Appetite: Good Muscle strength/Tone: Normal Gait/Station: Normal Psychiatric Findings - Problem List ([place] 1, 2,3) (1) Opioid dependence with withdrawal Current Visit: Yes Status: Acute (2) Alcohol dependence Current Visit: Yes Status: Acute (3) Cannabis dependence, uncomplicated Current Visit: Yes Status: Acute (4) Cocaine dependence, uncomplicated Current Visit: Yes Status: Acute (5) Nicotine dependence Current Visit: Yes Status: Acute Qualifiers: Nicotine product type: cigarettes Substance use status: uncomplicated Qualified Code(s): F17.210 - Nicotine dependence, cigarettes, uncomplicated (6) Bipolar disorder Current Visit: Yes Status: Chronic Qualifiers: Active/Remission status: remission status unspecified Qualified Code(s): F31.9 - Bipolar disorder, unspecified (7) Insomnia Current Visit: Yes Status: Acute Qualifiers: Insomnia type: unspecified Qualified Code(s): G47.00 - Insomnia, unspecified - Initial Treatment Plan Initial Treatment Plan: Psychoeducation.Sleep hygiene.Detoxification.Will resume latuda at a much lower dose, 20 mg po daily (non-adherence for days) .Ambien is withdrawn until further orders.Observe for oversedation.Side effects/ benefits of latuda and ambien are discussed with the patient.Mr Norton is in agreement with this plan of care.Will follow.
[2017-11-22 16:32] LABS: URINE APPEARANCE CLEAR; URINE BILIRUBIN NEGATIVE (<2.0 mg/dL); URINE COLOR YELLOW; URINE GLUCOSE (UA) NEGATIVE (NEGATIVE); URINE KETONE NEGATIVE (NEGATIVE); URINE LEUK ESTERASE NEGATIVE (NEGATIVE); URINE NITRITE NEGATIVE (NEGATIVE); URINE PROTEIN NEGATIVE (NEGATIVE); URINE UROBILINOGEN 4.0 E.U/dl mg/dL (0.2-1.0)
[2017-11-22] MEDS: THIAMINE HCL 100 MG TABLET (FP) PO SCH (22:07)
[2017-11-22] MEDS: MELATONIN 5 MG TABLETS PO PRN (22:09)
[2017-11-23] MEDS: guaiFENesin/D-METHORPHAN HB 10 ML UNIT-DOSE CUPS PO PRN ×2 (04:31→12:43)
[2017-11-23] MEDS: chlordiazePOXIDE HCL 25 MG CAPSULE PO SCH ×3 (04:59→18:20)
--- NOTE | 2017-11-23 09:02 | EKG ---
Test Reason : Blood Pressure : / mmHG Vent. Rate : 105 BPM Atrial Rate : 105 BPM P-R Int : 138 ms QRS Dur : 078 ms QT Int : 306 ms P-R-T Axes : 062 073 060 degrees QTc Int : 404 ms SINUS TACHYCARDIA POSSIBLE LEFT ATRIAL ENLARGEMENT NONSPECIFIC T WAVE ABNORMALITY ABNORMAL ECG WHEN COMPARED WITH ECG OF 08-JUL-2017 21:03, NO SIGNIFICANT CHANGE WAS FOUND Confirmed by FÉLIX BEAR MD ([id number]) on 11/23/2017 9:02:34 AM Referred By: Confirmed By:FÉLIX BEAR MD
[2017-11-23] MEDS: METHADONE HCL 5 MG TABLET (FOR DETOX USE ONLY) PO SCH (10:51)
[2017-11-23] MEDS: PRENATAL VITAMINS W/ FOLIC ACID TABLET (FP) PO SCH (10:51)
[2017-11-23] MEDS: LURASIDONE HCL 20 MG TABLET PO SCH (10:52)
[2017-11-23] MEDS: NICOTINE 21 MG/24 HOURS TOPICAL PATCH TD SCH (10:52)
[2017-11-23] MEDS: CYCLOBENZAPRINE HCL 10 MG TABLET (FP) PO PRN ×2 (12:42→22:13)
[2017-11-23] MEDS: chlordiazePOXIDE HCL 25 MG CAPSULE PO PRN ×2 (14:20→20:13)
[2017-11-23] MEDS ORDERED: TRIMETHOBENZAMIDE HCL 300 MG CAPSULE PO PRN (16:55)
--- NOTE | 2017-11-23 16:58 | PN ---
S CIWA - CIWA Score Nausea/Vomitin Muscle Tremors: 5 Anxiety: 2 Agitation: 2 Paroxysmal Sweats: No Perspiration Orientation: 0-Oriented Tacttile Disturbances: 3-Moderate Itch/Numb/Burn Auditory Disturbances: 0-None Visual Disturbances: 0-None Headache: 0-None Present CIWA-Ar Total Score: 17 [facility] COWS - Scale Resting Pulse: 0= RI 80 or Below Sweatin= Chills/Flushing Restless Observation: 3= Extraneous Movement Pupil Size: 0= Normal to Room Light Bone or Joint Aches: 2= Severe Diffuse Aches Runny Nose/ Eye Tearin= None GI Upset > 30mins: 3= Vomiting/Diarrhea Tremor Observation of Outstretched Hands: 4= Gross Tremor/Twitching Yawning Observation: 1= 1-2x During Session Anxiety or Irritability: 1=Feels Anxious/Irritable Goose Flesh Skin: 0=Smooth Skin COWS Score: 15 S Progress Note (SOAP) Subjective: Fatigue, Body Aches, Vomiting, Tremors, Diarrhea. Objective: PATIENT A & O X 3, OBSERVED AMBULATING ON UNIT. NO ACUTE DISTRESS. 11/23/17 16:57 Vital Signs Temperature 96.8 F L 11/23/17 14:17 Pulse Rate 70 11/23/17 14:17 Respiratory Rate 16 11/23/17 14:17 Blood Pressure 121/83 11/23/17 14:17 O2 Sat by Pulse Oximetry (%) Laboratory Tests 11/22/17 11/22/17 11/22/17 07:40 07:40 07:40 WBC 10.6 H RBC 4.79 Hgb 13.6 Hct 39.9 MCV 83.2 MCH 28.4 MCHC 34.1 RDW 14.3 Plt Count 203 MPV 9.1 Sodium 140 Potassium 4.0 Chloride 104 Carbon Dioxide 28 Anion Gap 8 BUN 28 H Creatinine 1.0 Creat Clearance w eGFR > 60 Random Glucose 112 H Calcium 8.6 Total Bilirubin 0.8 AST 23 ALT 28 Alkaline Phosphatase 91 Total Protein 6.8 Albumin 3.5 Urine Color Urine Appearance Urine pH Ur Specific [place] Urine Protein Urine Glucose (UA) Urine Ketones Urine Blood Urine Nitrite Urine Bilirubin Urine Urobilinogen Ur Leukocyte Esterase RPR Titer Nonreactive 11/22/17 09:30 WBC RBC Hgb Hct MCV MCH MCHC RDW Plt Count MPV Sodium Potassium Chloride Carbon Dioxide Anion Gap BUN Creatinine Creat Clearance w eGFR Random Glucose Calcium Total Bilirubin AST ALT Alkaline Phosphatase Total Protein Albumin Urine Color Yellow Urine Appearance Clear Urine pH 7.0 D Ur Specific [place] 1.014 Urine Protein Negative Urine Glucose (UA) Negative Urine Ketones Negative Urine Blood Negative Urine Nitrite Negative Urine Bilirubin Negative Urine Urobilinogen 4.0 e.u/dl Ur Leukocyte Esterase Negative RPR Titer LABS NOTED. Assessment: 11/23/17 16:58 WITHDRAWAL SYMPTOMS. Plan: CONTINUE DETOX. INCREASE DAILY PO FLUID INTAKE. PRN TIGAN PO FOR NAUSEA/VOMITING. PRN IMMODIUM FOR DIARRHEA.
[2017-11-23] MEDS: chlordiazePOXIDE 5 MG CAPSULE PO SCH (22:13)
[2017-11-23] MEDS: THIAMINE HCL 100 MG TABLET (FP) PO SCH (22:13)
[2017-11-24] MEDS: chlordiazePOXIDE 5 MG CAPSULE PO SCH ×3 (05:14→17:08)
[2017-11-24] MEDS: LURASIDONE HCL 20 MG TABLET PO SCH (10:10)
[2017-11-24] MEDS: METHADONE HCL 5 MG TABLET (FOR DETOX USE ONLY) PO SCH (10:10)
[2017-11-24] MEDS: PRENATAL VITAMINS W/ FOLIC ACID TABLET (FP) PO SCH (10:11)
[2017-11-24] MEDS: NICOTINE 21 MG/24 HOURS TOPICAL PATCH TD SCH (10:11)
--- NOTE | 2017-11-24 10:48 | PN ---
[facility] Progress Note Note: Psychiatry Attending's note (delayed) : Wildfire Prevention Specialist met briefly with the patient on 11/23/17. Reason : discussion of medications. Mr Errol declined new script for latuda.
--- NOTE | 2017-11-24 13:35 | PN ---
S Progress Note (SOAP) Subjective: Diarrhea (all night last night), headache, tremor Objective: 11/24/17 13:33 Last Vital Signs Temp Pulse Resp BP Pulse Ox 96.7 F L 87 16 117/73 11/24/17 10:26 11/24/17 10:26 11/24/17 10:26 11/24/17 10:26 Laboratory Tests 11/22/17 11/22/17 11/22/17 07:40 07:40 07:40 WBC 10.6 H RBC 4.79 Hgb 13.6 Hct 39.9 MCV 83.2 MCH 28.4 MCHC 34.1 RDW 14.3 Plt Count 203 MPV 9.1 Sodium 140 Potassium 4.0 Chloride 104 Carbon Dioxide 28 Anion Gap 8 BUN 28 H Creatinine 1.0 Creat Clearance w eGFR > 60 Random Glucose 112 H Calcium 8.6 Total Bilirubin 0.8 AST 23 ALT 28 Alkaline Phosphatase 91 Total Protein 6.8 Albumin 3.5 Urine Color Urine Appearance Urine pH Ur Specific [place] Urine Protein Urine Glucose (UA) Urine Ketones Urine Blood Urine Nitrite Urine Bilirubin Urine Urobilinogen Ur Leukocyte Esterase RPR Titer Nonreactive 11/22/17 09:30 WBC RBC Hgb Hct MCV MCH MCHC RDW Plt Count MPV Sodium Potassium Chloride Carbon Dioxide Anion Gap BUN Creatinine Creat Clearance w eGFR Random Glucose Calcium Total Bilirubin AST ALT Alkaline Phosphatase Total Protein Albumin Urine Color Yellow Urine Appearance Clear Urine pH 7.0 D Ur Specific [place] 1.014 Urine Protein Negative Urine Glucose (UA) Negative Urine Ketones Negative Urine Blood Negative Urine Nitrite Negative Urine Bilirubin Negative Urine Urobilinogen 4.0 e.u/dl Ur Leukocyte Esterase Negative RPR Titer Labs reviewed: bun 28 Assessment: 11/24/17 13:34 Withdrawal symptoms Noted with azotemia Plan: Continue detox Azotemia: encouraged to drink lots of water for hydration, repeat bmp in AM due to diarrhea
[2017-11-24] MEDS: chlordiazePOXIDE HCL 25 MG CAPSULE PO PRN ×2 (14:34→20:25)
[2017-11-24] MEDS: CYCLOBENZAPRINE HCL 10 MG TABLET (FP) PO PRN (22:14)
[2017-11-24] MEDS: THIAMINE HCL 100 MG TABLET (FP) PO SCH (22:14)
[2017-11-24] MEDS: chlordiazePOXIDE HCL 10 MG CAPSULE PO SCH (22:14)
[2017-11-25] MEDS ORDERED: hydrOXYzine PAMOATE 50 MG CAPSULE (FP) PO ONE (01:22)
[2017-11-25] MEDS: guaiFENesin/D-METHORPHAN HB 10 ML UNIT-DOSE CUPS PO PRN (01:27)
[2017-11-25] MEDS: chlordiazePOXIDE HCL 10 MG CAPSULE PO SCH ×3 (05:11→17:53)
[2017-11-25] MEDS ORDERED: METHADONE HCL 10 MG TABLET (FOR DETOX USE ONLY) PO SCH (10:00)
[2017-11-25] MEDS: PRENATAL VITAMINS W/ FOLIC ACID TABLET (FP) PO SCH (10:18)
[2017-11-25] MEDS: LURASIDONE HCL 20 MG TABLET PO SCH (10:19)
[2017-11-25] MEDS: NICOTINE 21 MG/24 HOURS TOPICAL PATCH TD SCH (10:53)
[2017-11-25 11:08] LABS: ANION GAP 4 (8-16); BLOOD UREA NITROGEN 17 mg/dL (7-18); CALCIUM 8.4 mg/dL (8.5-10.1); CHLORIDE 101 mmol/L (98-107); CO2 31 mmol/L (21-32); GLUCOSE,RANDOM 132 mg/dL (74-106); POTASSIUM 4.3 mmol/L (3.5-5.1); SODIUM 136 mmol/L (136-145)
--- NOTE | 2017-11-25 11:49 | PN ---
[facility] Progress Note (SOAP) Subjective: C/O ANXIETY,IRRITABILITY TREMORS AND DIARRHEA. Objective: 11/25/17 11:47 Vital Signs 11/25/17 11/25/17 11/25/17 06:28 06:30 09:13 Temperature 97.0 F L 97.3 F L Pulse Rate 82 87 Respiratory 18 18 18 Rate Blood Pressure 119/71 110/69 Laboratory Tests 11/22/17 11/22/17 11/22/17 07:40 07:40 07:40 WBC 10.6 H RBC 4.79 Hgb 13.6 Hct 39.9 MCV 83.2 MCH 28.4 MCHC 34.1 RDW 14.3 Plt Count 203 MPV 9.1 Sodium 140 Potassium 4.0 Chloride 104 Carbon Dioxide 28 Anion Gap 8 BUN 28 H Creatinine 1.0 Creat Clearance w eGFR > 60 Random Glucose 112 H Calcium 8.6 Total Bilirubin 0.8 AST 23 ALT 28 Alkaline Phosphatase 91 Total Protein 6.8 Albumin 3.5 Urine Color Urine Appearance Urine pH Ur Specific Check Urine Protein Urine Glucose (UA) Urine Ketones Urine Blood Urine Nitrite Urine Bilirubin Urine Urobilinogen Ur Leukocyte Esterase RPR Titer Nonreactive 11/22/17 11/25/17 09:30 08:30 WBC RBC Hgb Hct MCV MCH MCHC RDW Plt Count MPV Sodium 136 Potassium 4.3 Chloride 101 Carbon Dioxide 31 Anion Gap 4 L BUN 17 Creatinine 1.0 Creat Clearance w eGFR > 60 Random Glucose 132 H Calcium 8.4 L Total Bilirubin AST ALT Alkaline Phosphatase Total Protein Albumin Urine Color Yellow Urine Appearance Clear Urine pH 7.0 D Ur Specific [place] 1.014 Urine Protein Negative Urine Glucose (UA) Negative Urine Ketones Negative Urine Blood Negative Urine Nitrite Negative Urine Bilirubin Negative Urine Urobilinogen 4.0 e.u/dl Ur Leukocyte Esterase Negative RPR Titer Assessment: 11/25/17 11:47 WITHDRAWAL SX Plan: CONTINUE DETOX BGM ACBK R/O HYPERGLYCEMAI
[2017-11-25] MEDS: hydrOXYzine PAMOATE 50 MG CAPSULE (FP) PO PRN (13:57)
[2017-11-25] MEDS: MELATONIN 5 MG TABLETS PO PRN (22:11)
[2017-11-25] MEDS: THIAMINE HCL 100 MG TABLET (FP) PO SCH (22:11)
[2017-11-26] MEDS: hydrOXYzine PAMOATE 50 MG CAPSULE (FP) PO PRN (02:58)
[2017-11-26] MEDS ORDERED: METHADONE HCL 5 MG TABLET (FOR DETOX USE ONLY) PO SCH (06:00)
[2017-11-26] MEDS: NICOTINE 21 MG/24 HOURS TOPICAL PATCH TD SCH (10:12)
[2017-11-26] MEDS: PRENATAL VITAMINS W/ FOLIC ACID TABLET (FP) PO SCH (10:12)
[2017-11-26] MEDS: LURASIDONE HCL 20 MG TABLET PO SCH (10:12)
--- NOTE | 2017-11-26 11:35 | PN ---
S Progress Note (SOAP) Subjective: DETOX COMPLETED. ALERT O X 3. NAD. PT REPORTS HE HAS PRIMARY CARE AT [facility] IN [place], [place] WITH DR PATRICIA PERALTA. REFERRED TO REHAB FOR AFTERCARE. Objective: 11/26/17 11:33 Vital Signs 11/26/17 11/26/17 11/26/17 06:20 06:30 09:26 Temperature 96.6 F L 97.3 F L Pulse Rate 85 88 Respiratory 18 18 18 Rate Blood Pressure 119/76 125/79 Laboratory Tests 11/22/17 11/22/17 11/22/17 07:40 07:40 07:40 WBC 10.6 H RBC 4.79 Hgb 13.6 Hct 39.9 MCV 83.2 MCH 28.4 MCHC 34.1 RDW 14.3 Plt Count 203 MPV 9.1 Sodium 140 Potassium 4.0 Chloride 104 Carbon Dioxide 28 Anion Gap 8 BUN 28 H Creatinine 1.0 Creat Clearance w eGFR > 60 POC Glucometer Random Glucose 112 H Calcium 8.6 Total Bilirubin 0.8 AST 23 ALT 28 Alkaline Phosphatase 91 Total Protein 6.8 Albumin 3.5 Urine Color Urine Appearance Urine pH Ur Specific [place] Urine Protein Urine Glucose (UA) Urine Ketones Urine Blood Urine Nitrite Urine Bilirubin Urine Urobilinogen Ur Leukocyte Esterase RPR Titer Nonreactive 11/22/17 11/25/17 11/26/17 09:30 08:30 05:46 WBC RBC Hgb Hct MCV MCH MCHC RDW Plt Count MPV Sodium 136 Potassium 4.3 Chloride 101 Carbon Dioxide 31 Anion Gap 4 L BUN 17 Creatinine 1.0 Creat Clearance w eGFR > 60 POC Glucometer 225 Random Glucose 132 H Calcium 8.4 L Total Bilirubin AST ALT Alkaline Phosphatase Total Protein Albumin Urine Color Yellow Urine Appearance Clear Urine pH 7.0 D Ur Specific [place] 1.014 Urine Protein Negative Urine Glucose (UA) Negative Urine Ketones Negative Urine Blood Negative Urine Nitrite Negative Urine Bilirubin Negative Urine Urobilinogen 4.0 e.u/dl Ur Leukocyte Esterase Negative RPR Titer Assessment: 11/26/17 11:34 MEDICALLY STABLE Plan: D/C PT TODAY TO REHAB IF BED AVAILABLE.
--- NOTE | 2017-11-26 11:37 | DS ---
[facility] Detox Discharge Summary Admission Date: 11/21/17 Discharge Date: 11/26/17 - History Present History: Alcohol Dependence, Cannabis Dependence, Cocaine Dependence, Opioid Dependence Additional Comments: DETOX COMPLETED. ALERT OX 3. Pertinent Past History: ANNABELLA SEE DX BELOW - Physical Exam Results Vital Signs: Vital Signs Temperature 97.3 F L 11/26/17 09:26 Pulse Rate 88 11/26/17 09:26 Respiratory Rate 18 11/26/17 09:26 Blood Pressure 125/79 11/26/17 09:26 O2 Sat by Pulse Oximetry (%) Pertinent Admission Physical Exam Findings: WITHDRAWAL SX Vital Signs 11/26/17 11/26/17 11/26/17 06:20 06:30 09:26 Temperature 96.6 F L 97.3 F L Pulse Rate 85 88 Respiratory 18 18 18 Rate Blood Pressure 119/76 125/79 Laboratory Tests 11/22/17 11/22/17 11/22/17 07:40 07:40 07:40 WBC 10.6 H RBC 4.79 Hgb 13.6 Hct 39.9 MCV 83.2 MCH 28.4 MCHC 34.1 RDW 14.3 Plt Count 203 MPV 9.1 Sodium 140 Potassium 4.0 Chloride 104 Carbon Dioxide 28 Anion Gap 8 BUN 28 H Creatinine 1.0 Creat Clearance w eGFR > 60 POC Glucometer Random Glucose 112 H Calcium 8.6 Total Bilirubin 0.8 AST 23 ALT 28 Alkaline Phosphatase 91 Total Protein 6.8 Albumin 3.5 Urine Color Urine Appearance Urine pH Ur Specific [place] Urine Protein Urine Glucose (UA) Urine Ketones Urine Blood Urine Nitrite Urine Bilirubin Urine Urobilinogen Ur Leukocyte Esterase RPR Titer Nonreactive 11/22/17 11/25/17 11/26/17 09:30 08:30 05:46 WBC RBC Hgb Hct MCV MCH MCHC RDW Plt Count MPV Sodium 136 Potassium 4.3 Chloride 101 Carbon Dioxide 31 Anion Gap 4 L BUN 17 Creatinine 1.0 Creat Clearance w eGFR > 60 POC Glucometer 225 Random Glucose 132 H Calcium 8.4 L Total Bilirubin AST ALT Alkaline Phosphatase Total Protein Albumin Urine Color Yellow Urine Appearance Clear Urine pH 7.0 D Ur Specific [place] 1.014 Urine Protein Negative Urine Glucose (UA) Negative Urine Ketones Negative Urine Blood Negative Urine Nitrite Negative Urine Bilirubin Negative Urine Urobilinogen 4.0 e.u/dl Ur Leukocyte Esterase Negative RPR Titer - Treatment Hospital Course: Detox Protocol Followed, Detoxed Safely, Responded well, Discharged Condition Good, Rehab Referral Accepted - Medication Discharge Medications: Ambulatory Orders Lurasidone HCl [Latuda] 60 mg PO DAILY 07/08/17 Zolpidem Tartrate [Ambien] 10 mg PO HS 11/21/17 - Diagnosis (1) Opioid dependence with withdrawal Current Visit: Yes Status: Acute (2) Cannabis dependence, uncomplicated Current Visit: Yes Status: Acute (3) Cocaine dependence, uncomplicated Current Visit: Yes Status: Acute (4) HTN (hypertension) Current Visit: Yes Status: Suspected Qualifiers: Hypertension type: essential hypertension Qualified Code(s): I10 - Essential (primary) hypertension (5) Hep C w/o coma, chronic Current Visit: Yes Status: Chronic (6) Nicotine dependence Current Visit: Yes Status: Acute Qualifiers: Nicotine product type: cigarettes Substance use status: in withdrawal Qualified Code(s): F17.213 - Nicotine dependence, cigarettes, with withdrawal (7) Alcohol dependence with uncomplicated withdrawal Current Visit: Yes Status: Acute - AMA Did Patient Leave Against Medical Advice: No
[2017-11-26 13:26] VITALS: BP 124/75; PULSE 92; TEMP 97
== END 2017-11-26 03:12 | disposition other institution (70) | DRG 773 ==
LOC: YASAS 17:51 → Y3N 22:32
PROVIDERS: ADMIT Surgery; ATTEND Surgery
PROC: HZ2ZZZZ Detoxification Services for Substance Abuse Treatment (ICD-10-PCS; principal; 2017-11-21)
DX: F11.23 Opioid dependence with withdrawal (principal); F10.230 Alcohol dependence with withdrawal, uncomplicated; F14.20 Cocaine dependence, uncomplicated; F12.20 Cannabis dependence, uncomplicated; F17.213 Nicotine dependence, cigarettes, with withdrawal; F31.9 Bipolar disorder, unspecified; F32.9 Major depressive disorder, single episode, unspecified; I10 Essential (primary) hypertension; B18.2 Chronic viral hepatitis C; R79.89 Other specified abnormal findings of blood chemistry; G47.00 Insomnia, unspecified; Z87.438 Personal history of other diseases of male genital organs; Z86.11 Personal history of tuberculosis; Z91.5 Personal history of self-harm
CPT/HCPCS: 36415; 80048; 80053; 81003; 82962; 85027; 86593; 93005; 93010

== ENCOUNTER 2017-11-26 15:17 | Inpatient (IN) | payer OTHER ==
[2017-11-26 15:52] VITALS: BMI 28.2
[2017-11-26] MEDS ORDERED: P-EPHED 60MG/TRIPROLIDI 2.5MG TABLET PO PRN (16:08)
[2017-11-26] MEDS ORDERED: MAG HYDROX/AL HYDROX/SIMETH 30 ML UNIT-DOSE CUP PO PRN (16:08)
[2017-11-26] MEDS ORDERED: MAGNESIUM HYDROX 2400MG/30ML ORAL SUSPENSION 30 ML CUP PO PRN (16:08)
[2017-11-26] MEDS ORDERED: ACETAMINOPHEN 325 MG TABLET (FP) PO PRN (16:08)
[2017-11-26] MEDS ORDERED: NICOTINE POLACRILEX 4 MG GUM BUC PRN (16:08)
[2017-11-26] MEDS ORDERED: LOPERAMIDE HCL 2 MG CAPSULE PO PRN (16:08)
[2017-11-26] MEDS ORDERED: MAGNESIUM CITRATE 300 ML BOTTLE PO PRN (16:08)
[2017-11-26] MEDS ORDERED: guaiFENesin/D-METHORPHAN HB 10 ML UNIT-DOSE CUPS PO PRN (16:08)
[2017-11-26] MEDS ORDERED: MENTHOL/PHENOL 1 EACH UD MM PRN (16:08)
[2017-11-26] MEDS ORDERED: IBUPROFEN 400 MG TABLET (FP) PO PRN (16:08)
--- NOTE | 2017-11-26 16:08 | HP ---
[facility] Rehab Assess/Revision - Admission History Admitted to Rehab from: [facility] [place] Date of Admission to Rehab: 11/26/17 - Vital signs Vital Signs: Vital Signs Period Temp Pulse Resp BP Sys/Fritz Pulse Ox Last 24 Hr 98 F 95 18 123/71 - Findings Detox History & Physical reviewed: Yes Concur with findings: Yes Comments/Additional Findings: DETOX COMPLETED TODAY
[2017-11-26] MEDS ORDERED: CYCLOBENZAPRINE HCL 10 MG TABLET (FP) PO PRN (16:09)
[2017-11-26] MEDS: NICOTINE 21 MG/24 HOURS TOPICAL PATCH TD SCH (17:57)
[2017-11-26] MEDS: THIAMINE HCL 100 MG TABLET (FP) PO SCH (21:51)
[2017-11-26] MEDS: MELATONIN 5 MG TABLETS PO PRN (21:51)
[2017-11-27] MEDS: hydrOXYzine PAMOATE 50 MG CAPSULE (FP) PO PRN ×2 (02:37→22:04)
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
[2017-11-27] MEDS: NICOTINE 21 MG/24 HOURS TOPICAL PATCH TD SCH (11:01)
[2017-11-27] MEDS: PRENATAL VITAMINS W/ FOLIC ACID TABLET (FP) PO SCH (11:01)
[2017-11-27] MEDS ORDERED: LURASIDONE HCL 40 MG TABLET PO SCH (13:00)
[2017-11-27] MEDS ORDERED: PT OWN MED DRAWER 7, Y5N ONE (15:58)
[2017-11-27] MEDS: LURASIDONE HCL 40 MG, LURASIDONE HCL 20 MG PO SCH (16:02)
[2017-11-27] MEDS ORDERED: SUVOREXANT 10 MG TABLET PO PRN (22:00)
[2017-11-27] MEDS: THIAMINE HCL 100 MG TABLET (FP) PO SCH (22:03)
[2017-11-27] MEDS: MELATONIN 5 MG TABLETS PO PRN (22:04)
[2017-11-28] MEDS ORDERED: PT OWN MED DRAWER 7, Y5N ONE (08:53)
[2017-11-28] MEDS: PRENATAL VITAMINS W/ FOLIC ACID TABLET (FP) PO SCH (09:57)
[2017-11-28] MEDS: NICOTINE 21 MG/24 HOURS TOPICAL PATCH TD SCH (09:58)
[2017-11-28] MEDS: LURASIDONE HCL 40 MG, LURASIDONE HCL 20 MG PO SCH (09:58)
[2017-11-28] MEDS ORDERED: hydrOXYzine PAMOATE 50 MG CAPSULE (FP) PO ONE (15:44)
--- NOTE | 2017-11-28 16:32 | PN ---
Psychiatric Progress Note Vital Signs: Vital Signs Period Temp Pulse Resp BP Sys/Fritz Pulse Ox Last 24 Hr 97.3 F 91 18-20 122/74 Date of Session: 11/28/17 Chief Complaint:: "I want to kill myself" HPI: Patient admitted to [facility] re[facility] after completing detox on [facility]. Pt. was admitted for cocaine, heroin and marijuana dependence. ROS: Significant for hypertension,hepatitis C,antecedent of tuberculosis ( hospitalized and treated with INH),past treatment for gonorrhea and orthosurgery (bilateral knee replacement in 2000). Current Medications: Active Medications Generic Name Dose Route Start Last Admin Trade Name Freq PRN Reason Stop Dose Admin Acetaminophen 650 mg 11/26/17 16:08 Tylenol - PO Q4H PRN FEVER Al Hydroxide/Mg Hydroxide 30 ml 11/26/17 16:08 Mylanta Oral Suspension - PO Q6H PRN DYSPEPSIA Cyclobenzaprine HCl 10 mg 11/26/17 16:09 Flexeril - PO TID PRN MUSCLE SPASMS Eucalyptus/Menthol/Phenol/Sorbitol 1 each 11/26/17 16:08 Cepastat Lozenge - MM Q4H PRN SORE THROAT Fluphenazine HCl 5 mg 11/28/17 13:45 11/28/17 13:55 Prolixin - PO 5 mg BID PAKO Administration Guaifenesin 10 ml 11/26/17 16:08 Robitussin Dm - PO Q6H PRN COUGH Hydroxyzine Pamoate 50 mg 11/26/17 16:08 11/27/17 22:04 Vistaril - PO 50 mg Q4H PRN Administration AGITATION Ibuprofen 400 mg 11/26/17 16:08 Motrin - PO Q6H PRN Pain Level 4-6 Loperamide HCl 4 mg 11/26/17 16:08 Imodium - PO Q6H PRN DIARRHEA Lurasidone HCl 40 mg/ 60 mg 11/27/17 13:45 11/28/17 09:58 Lurasidone HCl 20 mg PO 60 mg DAILY PAKO Administration Magnesium Citrate 300 ml 11/26/17 16:08 Citroma - PO Q48H PRN CONSTIPATION Magnesium Hydroxide 30 ml 11/26/17 16:08 Milk Of Magnesia - PO DAILY PRN CONSTIPATION Melatonin 8 mg 11/28/17 22:00 Melatonin PO HS PRN INSOMNIA Nicotine 21 mg 11/26/17 16:45 11/28/17 09:58 Nicoderm Patch - TD Not Given DAILY PAKO Nicotine Polacrilex 4 mg 11/26/17 16:08 Nicorette Gum - BUC Q2H PRN NICOTINE REPLACEMENT RX Multivit/Folic Acid/Iron 1 tab 11/27/17 10:00 11/28/17 09:57 Vitamins (Sjr) - PO 1 tab DAILY PAKO Administration Pseudoephedrine/Triprolidine 1 combo 11/26/17 16:08 Actifed - PO TID PRN NASAL CONGESTION Suvorexant 15 mg 11/28/17 22:00 Belsomra PO HS PRN INSOMNIA Thiamine HCl 100 mg 11/26/17 22:00 11/27/17 22:03 Vitamin B1 - PO 100 mg HS PAKO Administration Medication(s) Change(s): Yes. One time dose of vistaril 50mg ordered. Belsomra increased to 15mg and Melatonin increased to 8mg. Current Side Effect: No Lab tests ordered: No Lab tests reviewed: Yes Provider note:: Leather Finisher informed by nursing staff and counselors that patient was endorsing suicidal and homicidal ideation. Upon approach patient presented as pleasant but restless. Dr. Colon and Dr roldan note's read and apprecaited. Pt. with a history of multiple psychiatric hospitalizations and suicide attempts. Diagnosis of bipolar disorder. Pt. states he is frustrated with his stay due to the hard bed he sleeps on and now just wants to go home. Pt. reported having thoughts to jump in front of a train or overdose. When asked who he wanted to hurt, patient stated he wanted to hurt his friend Jaiden ( a prostitue he is friends with). As the conversation continued patient retracted his statement and stated " i do not want to kill her. I would never hurt her in that way. i love her. I want to hurt her feelings because she keeps going into my apartment and taking my things." Pt stated to song writer he would hurt her emotionally by having sexual intercourse with her friend since she is very jealous individual. As the conversation continued, Pt. contined to endorse suicidal ideation. Stated he would bite his tongue. Pt. reports auditory and visual hallucinations but states it is because of lack of sleep. States he was hearing echos and seeing things cross his eyes (nothing specific) . Medications reviewed with patient. Pt. is currently accepting latuda 60mg daily. Pt. refusing to accept thorzaine due to h/o akathisia unless he takes it with klonopin or a narcotic medication. Pt. aware that benzodiazepines and and naroctics medications are not ordered in rehab. Pt. given several other options (seroquel, haldol, zyprexa, benadryl,). Pt. not willing to accept another antipsychotic medications due to h/o akathisia. Patient also stating benadryl does nothing for him. Pt. agreeable to accepting one time dose of vistaril 50mg. Dr. Roldan ordered prolixen 5mg BID and patient was agreeable to accepting medication. Pt. reported feeling better after speaking to song writer and no longer endorsed suicidal ideation. Due to patient's history and earlier suicidal comments patient will be placed on 1:1 for safety. Total face to face time:: 45 Mental Status Exam - Mental Status Exam Alert and Oriented to: Time, Place, Person Cognitive Function: Good Patient Appearance: Well Groomed Mood: Anxious, Euthymic Affect: Mood Congruent Patient Behavior: Cooperative Speech Pattern: Appropriate Voice Loudness: Normal Thought Process: Goal Oriented Thought Disorder: Not Present Hallucinations: Auditory, Visual Suicidal Ideation: Denies (At first reported suicidal ideation but denied it and reported feeling better after speaking with song writer. ) Homicidal Ideation: Denies (Reported HI to nursing staff but clarified with song writer that he did not want to kill his friend. Only wants to hurt her feelings. ) Insight/Judgement: Poor Sleep: Poorly Appetite: Fair Muscle strength/Tone: Normal Gait/Station: Normal Psychiatric Treatment Plan - Problem List (1) Cannabis dependence Current Visit: Yes (2) Cocaine dependence Current Visit: Yes (3) Opioid dependence Current Visit: Yes (4) Substance induced mood disorder Current Visit: Yes (5) Substance-induced sleep disorder Current Visit: Yes (6) Alcohol dependence Current Visit: No (7) Bipolar disorder Current Visit: No Qualifiers: Active/Remission status: remission status unspecified Qualified Code(s): F31.9 - Bipolar disorder, unspecified (8) Nicotine dependence Current Visit: No Qualifiers: Nicotine product type: cigarettes Substance use status: in withdrawal Qualified Code(s): F17.213 - Nicotine dependence, cigarettes, with withdrawal
[2017-11-28] MEDS: hydrOXYzine PAMOATE 50 MG CAPSULE (FP) PO PRN (19:21)
[2017-11-28] MEDS: SUVOREXANT 15 MG TABLET PO PRN (21:51)
[2017-11-28] MEDS: THIAMINE HCL 100 MG TABLET (FP) PO SCH (21:51)
[2017-11-28] MEDS: MELATONIN 5 MG, MELATONIN 3 MG PO PRN (21:51)
[2017-11-28] MEDS ORDERED: MELATONIN 5 MG TABLETS PO PRN (22:00)
--- NOTE | 2017-11-29 08:07 | PN ---
[facility] Progress Note Note: Told by counselor that patient reports that he was on Thorazine 800 mg po HS and wanted to resume medication at that dose. Review of pharmacy claims shows that last time script for Chlorpromazine 800 mg/day was filled was on 05/27/17. After that scripts for Chlorpromazine 200 mg/day filled on 06/25/17 & 09/05/17. First script for Fluphenazine was filled on 08/12/17 and another one filled on . Fluphenazine 5 mg po BID will be ordered for patient
--- NOTE | 2017-11-29 10:07 | PN ---
Psychiatric Progress Note Vital Signs: Vital Signs Period Temp Pulse Resp BP Sys/Fritz Pulse Ox Last 24 Hr 98 F 79 18-20 116/66 Date of Session: 11/29/17 Chief Complaint:: Follow up 1:1 HPI: Patient addressing Alcohol, Opioid, Cocaine and Cannabis Dependence comorbid with Nicotine Dependence, Bipolar Disorder, Substance-Induced Mood Disorder and Substance-Induced Sleep Disorder ROS: HTN, Hep C Current Medications: Active Medications Generic Name Dose Route Start Last Admin Trade Name Freq PRN Reason Stop Dose Admin Acetaminophen 650 mg 11/26/17 16:08 Tylenol - PO Q4H PRN FEVER Al Hydroxide/Mg Hydroxide 30 ml 11/26/17 16:08 Mylanta Oral Suspension - PO Q6H PRN DYSPEPSIA Cyclobenzaprine HCl 10 mg 11/26/17 16:09 Flexeril - PO TID PRN MUSCLE SPASMS Eucalyptus/Menthol/Phenol/Sorbitol 1 each 11/26/17 16:08 Cepastat Lozenge - MM Q4H PRN SORE THROAT Fluphenazine HCl 5 mg 11/28/17 13:45 11/28/17 21:51 Prolixin - PO 5 mg BID PAKO Administration Guaifenesin 10 ml 11/26/17 16:08 Robitussin Dm - PO Q6H PRN COUGH Hydroxyzine Pamoate 50 mg 11/26/17 16:08 11/28/17 19:21 Vistaril - PO 50 mg Q4H PRN Administration AGITATION Ibuprofen 400 mg 11/26/17 16:08 Motrin - PO Q6H PRN Pain Level 4-6 Loperamide HCl 4 mg 11/26/17 16:08 Imodium - PO Q6H PRN DIARRHEA Lurasidone HCl 40 mg/ 60 mg 11/27/17 13:45 11/28/17 09:58 Lurasidone HCl 20 mg PO 60 mg DAILY PAKO Administration Magnesium Citrate 300 ml 11/26/17 16:08 Citroma - PO Q48H PRN CONSTIPATION Magnesium Hydroxide 30 ml 11/26/17 16:08 Milk Of Magnesia - PO DAILY PRN CONSTIPATION Melatonin 5 mg/ Melatonin 3 mg 8 mg 11/28/17 22:00 11/28/17 21:51 PO 8 mg HS PRN Administration INSOMNIA Nicotine 21 mg 11/26/17 16:45 11/28/17 09:58 Nicoderm Patch - TD Not Given DAILY PAKO Nicotine Polacrilex 4 mg 11/26/17 16:08 Nicorette Gum - BUC Q2H PRN NICOTINE REPLACEMENT RX Multivit/Folic Acid/Iron 1 tab 11/27/17 10:00 11/28/17 09:57 Vitamins (Sjr) - PO 1 tab DAILY PAKO Administration Pseudoephedrine/Triprolidine 1 combo 11/26/17 16:08 Actifed - PO TID PRN NASAL CONGESTION Suvorexant 15 mg 11/28/17 22:00 11/28/17 21:51 Belsomra PO 15 mg HS PRN Administration INSOMNIA Thiamine HCl 100 mg 11/26/17 22:00 11/28/17 21:51 Vitamin B1 - PO 100 mg HS PAKO Administration Current Side Effect: No Lab tests ordered: Yes Lab tests reviewed: Yes Provider note:: Patient was seen late yesterday afternoon by TONYA Masterson and placed on 1:1 because he expressed wanting to kill himself by jumping in front of a train or taking an overdose. This morning, he reports feeling much better, no longer feeling like hurting himself. Told bond underwriter the reason why he felt like that yesterday is because before last night, he has not slept for 15 days. He says that he slept well last night and now feels tired. He is agreeable for discontinuing 1:1 as he does not feel depressed or suicidal anymore Total face to face time:: 25 Mental Status Exam - Mental Status Exam Alert and Oriented to: Time, Place, Person Cognitive Function: Fair Patient Appearance: Well Groomed Mood: Hopeful, Euthymic Affect: Appropriate Patient Behavior: Cooperative Speech Pattern: Clear Voice Loudness: Normal Thought Process: Intact, Goal Oriented Thought Disorder: Not Present Hallucinations: Denies Suicidal Ideation: Denies Homicidal Ideation: Denies Insight/Judgement: Fair Sleep: Fair Appetite: Good Muscle strength/Tone: Normal Gait/Station: Normal Psychiatric Treatment Plan - Problem List (1) Alcohol dependence Current Visit: No (2) Opioid dependence Current Visit: Yes (3) Cocaine dependence Current Visit: Yes (4) Cannabis dependence Current Visit: Yes (5) Nicotine dependence Current Visit: No Qualifiers: Nicotine product type: cigarettes Substance use status: in withdrawal Qualified Code(s): F17.213 - Nicotine dependence, cigarettes, with withdrawal (6) Bipolar disorder Current Visit: No Qualifiers: Active/Remission status: remission status unspecified Qualified Code(s): F31.9 - Bipolar disorder, unspecified (7) Substance induced mood disorder Current Visit: Yes (8) Substance-induced sleep disorder Current Visit: Yes (9) Hep C w/o coma, chronic Current Visit: No (10) HTN (hypertension) Current Visit: No Qualifiers: Hypertension type: essential hypertension Qualified Code(s): I10 - Essential (primary) hypertension Initial treatment plan: 1) Discontinue 1:1 and observe. 2) Monitor progress
[2017-11-29] MEDS: LURASIDONE HCL 40 MG, LURASIDONE HCL 20 MG PO SCH (10:26)
[2017-11-29] MEDS: PRENATAL VITAMINS W/ FOLIC ACID TABLET (FP) PO SCH (10:26)
[2017-11-29] MEDS: NICOTINE 21 MG/24 HOURS TOPICAL PATCH TD SCH (10:28)
[2017-11-29] MEDS: SUVOREXANT 15 MG TABLET PO PRN (21:34)
[2017-11-29] MEDS: MELATONIN 5 MG, MELATONIN 3 MG PO PRN (21:34)
[2017-11-29] MEDS: THIAMINE HCL 100 MG TABLET (FP) PO SCH (21:35)
[2017-11-29] MEDS: hydrOXYzine PAMOATE 50 MG CAPSULE (FP) PO PRN (21:36)
[2017-11-30 07:39] VITALS: BP 140/80; PULSE 97; TEMP 98.1
[2017-11-30] MEDS ORDERED: PT OWN MED DRAWER 7, Y5N ONE ×3 (08:31→22:14)
[2017-11-30] MEDS: LURASIDONE HCL 40 MG, LURASIDONE HCL 20 MG PO SCH (09:40)
[2017-11-30] MEDS: NICOTINE 21 MG/24 HOURS TOPICAL PATCH TD SCH (09:40)
[2017-11-30] MEDS: PRENATAL VITAMINS W/ FOLIC ACID TABLET (FP) PO SCH (09:40)
[2017-11-30] MEDS: SUVOREXANT 15 MG TABLET PO PRN (21:43)
[2017-11-30] MEDS: THIAMINE HCL 100 MG TABLET (FP) PO SCH (21:43)
[2017-11-30] MEDS: hydrOXYzine PAMOATE 50 MG CAPSULE (FP) PO PRN (21:44)
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
== END 2017-11-30 23:23 | DRG 772 ==
LOC: YASAS 15:17 → Y3W 15:18
PROVIDERS: ADMIT Psychiatry & Neurology Psychiatry; ATTEND Psychiatry & Neurology Psychiatry
PROC: HZ42ZZZ Group Counseling for Substance Abuse Treatment, Cognitive-Behavioral (ICD-10-PCS; principal; 2017-11-26)
DX: F11.20 Opioid dependence, uncomplicated (principal); F10.20 Alcohol dependence, uncomplicated; F14.20 Cocaine dependence, uncomplicated; F12.20 Cannabis dependence, uncomplicated; F17.210 Nicotine dependence, cigarettes, uncomplicated; F31.9 Bipolar disorder, unspecified; F19.24 Other psychoactive substance dependence with psychoactive substance-induced mood disorder; F19.282 Other psychoactive substance dependence with psychoactive substance-induced sleep disorder; B18.2 Chronic viral hepatitis C; I10 Essential (primary) hypertension; R45.851 Suicidal ideations; Z87.438 Personal history of other diseases of male genital organs; Z86.11 Personal history of tuberculosis; Z96.653 Presence of artificial knee joint, bilateral
CPT/HCPCS: 82962

== ENCOUNTER 2018-09-16 14:13 | Inpatient (IN) | payer OTHER ==
[2018-09-16 18:12] VITALS: BMI 28.3
--- NOTE | 2018-09-16 19:04 | HP ---
COWS - Scale Resting Pulse: 1= AL 81-100 Sweatin=Flushed/Facial Moisture Restless Observation: 5= Unable to Sit Still Pupil Size: 0= Normal to Room Light Bone or Joint Aches: 2= Severe Diffuse Aches Runny Nose/ Eye Tearin= Runny Nose/Eyes GI Upset > 30mins: 1= Stomach Cramp Tremor Observation: 4= Gross Tremor/Twitching Yawning Observation: 1= 1-2x During Session Anxiety or Irritability: 2=Irritable/Anxious Goose Flesh Skin: 3=Piloerection COWS Score: 23 CIWA Score - Admission Criteria OASAS Guidelines: Admission for Medically Managed Detox: Requires at least one of the followin. CIWA greater than 12 2. Seizures within the past 24 hours 3. Delirium tremens within the past 24 hours 4. Hallucinations within the past 24 hours 5. Acute intervention needed for co occurring medical disorder 6. Acute intervention needed for co occurring psychiatric disorder 7. Severe withdrawal that cannot be handled at a lower level of care (continued vomiting, continued diarrhea, abnormal vital signs) requiring intravenous medication and/or fluids 8. Admission ROS [facility] Chief Complaint: rehab: for cocaine use. Uses suboxone for heroin use disorder 57 yo with h/o knee replacement. Uses cocaine. Heroin- last 3 days ago, 6 bags IV, last OD 1986. Long h/o of opioid use disorder. Says he has not been able to get heroin for the last 3 days ("they locked up all the dealers in [place]") utox negative for opioids. Says he was getting suboxone MAT- last time on 07/30/18 rec'd #30. Says he was jailed for robbery and left retirement 2 weeks ago and has not been able to get suboxone for treatment. Pt states he feels is in withdrawal from opioids. cocaine- $300/day Will start suboxone for OUD- pt has COWs score of > 20. Pt wants to be maintained on Suboxone. Pt states he takes seroquel 200mg BID- will give 200mg qhs and need to confirm doses with pharmacy in AM Allergies/Adverse Reactions: Allergies Allergy/AdvReac Type Severity Reaction Status Date / Time No Known Allergies Allergy Verified 11/26/17 15:30 - Ebola screening Have you traveled outside of the country in the last 21 days: No (N) Have you had contact with anyone from an Ebola affected area: No Do you have a fever: No Patient History - Patient Medical History Hx Anemia: No Hx Asthma: No Hx Chronic Obstructive Pulmonary Disease (COPD): No Hx Cancer: No Hx Cardiac Disorders: No Hx Congestive Heart Failure: No Hx Hypertension: Yes (Not on medication) Hx Hypercholesterolemia: No Hx Pacemaker: No HX Cerebrovascular Accident: No Hx Seizures: No Hx Diabetes: No Hx Gastrointestinal Disorders: No Hx Liver Disease: Yes (Hep C - not treated) Hx Genitourinary Disorders: No Hx Sexually Transmitted Disorders: Yes (gonorrhea at age 18. - treated) Hx Renal Disease (ESRD): No Hx Thyroid Disease: No Hx Human Immunodeficiency Virus (HIV): No (Never tested and does not want to be tested) Hx Hepatitis C: Yes (Not treated) Hx Depression: Yes ([place]) Hx Suicide Attempt: Yes (FEW MONTHS AGO) Hx Bipolar Disorder: Yes Hx Schizophrenia: No - Patient Surgical History Past Surgical History: Yes Hx Neurologic Surgery: No Hx Cataract Extraction: No Hx Cardiac Surgery: No Hx Lung Surgery: No Hx Breast Surgery: No Hx Breast Biopsy: No Hx Abdominal Surgery: No Hx Appendectomy: No Hx Cholecystectomy: No Hx Genitourinary Surgery: No Hx Section: No Hx Orthopedic Surgery: Yes (Bilateral knee repalcement 2000) Anesthesia Reaction: No - PPD History Documented Results: Positive w/o proof Results: NEG CXR 06/2017 PPD to be Administered?: No - Smoking Cessation Smoking history: Current every day smoker Aproximately how many cigarettes per day: 20 Cigars Per Day: 0 Hx Chewing Tobacco Use: No Initiated information on smoking cessation: Yes 'Breaking Loose' booklet given: 09/16/18 - Substance & Tx. History Hx Alcohol Use: No Substance Use Type: Cocaine, Heroin - Substances abused Heroin Substance route: Injection Frequency: Daily Amount used: 6 to 7 bags Age of first use: 18 Date of last use: 09/13/18 Cocaine Substance route: Injection Frequency: Daily Amount used: $400 Age of first use: 17 Date of last use: 09/16/18 Family Disease History - Family Disease History Family Disease History: Other: Brother (SUICIDE/ ALCOHOLISM) Admission Physical Exam BHS - Vital Signs Vital Signs: Vital Signs - 24 hr 09/16/18 18:02 Temperature 96.8 F L Pulse Rate 86 Respiratory 19 Rate Blood Pressure 165/66 - Physical General Appearance: Yes: Moderate Distress, Thin, Irritable, Anxious HEENTM: Yes: Within Normal Limits, EOMI, ALFRED Respiratory: Yes: Within Normal Limits, Lungs Clear Neck: Yes: Within Normal Limits, No masses,lesions,Nodules Cardiology: Yes: Within Normal Limits, Regular Rate, S1, S2 Abdominal: Yes: Within Normal Limits, Normal Bowel Sounds, Non Tender, Flat Back: Yes: Within Normal Limits, Normal Inspection Musculoskeletal: Yes: Within Normal Limits, Gait Steady Extremities: Yes: Within Normal Limits, Normal Capillary Refill Neurological: Yes: Within Normal Limits, research professor II-XII NML intact Integumentary: Yes: Track Esparza, Other (several flesh colored papular lesions on face) Lymphatic: Yes: Within Normal Limits - Diagnostic (1) Opioid use disorder Current Visit: Yes Status: Acute (2) Cocaine use disorder Current Visit: Yes Status: Acute (3) Nicotine dependence Current Visit: No Status: Chronic Qualifiers: Nicotine product type: cigarettes Substance use status: in withdrawal Qualified Code(s): F17.213 - Nicotine dependence, cigarettes, with withdrawal Breathalyzer - Breathalyzer Breathalyzer: 0 Urine Drug Screen - Test Device Lot number: [id number] Expiration date: 08/20/19 - Control Is test valid?: Yes - Results Drug screen NEGATIVE: No Urine drug screen results: THC-Marijuana, PRANAV-Cocaine, BZO-Benzodiazepines Inpatient Rehab Admission - Rehab Decision to Admit Inpatient rehab admission?: Yes - Initial Determination Are CD services needed?: Yes Free of communicable disease: Yes Not in need of hospitalization: Yes - Rehab Admission Criteria Previous failed treatment: Yes Poor recovery environment: Yes Comorbidities: Yes Lacks judgement: Yes Patient is meeting Inpatient Rehab admission criteria:: Yes
[2018-09-16] MEDS ORDERED: MAGNESIUM CITRATE 300 ML BOTTLE PO PRN (19:20)
[2018-09-16] MEDS ORDERED: guaiFENesin 200 MG/10 ML 10 ML UNIT-DOSE CUPS PO PRN (19:20)
[2018-09-16] MEDS ORDERED: LOPERAMIDE HCL 2 MG CAPSULE PO PRN (19:20)
[2018-09-16] MEDS ORDERED: ACETAMINOPHEN 325 MG TABLET (FP) PO PRN (19:20)
[2018-09-16] MEDS ORDERED: P-EPHED 60MG/TRIPROLIDI 2.5MG TABLET PO PRN (19:20)
[2018-09-16] MEDS ORDERED: MENTHOL/PHENOL 1 EACH UD MM PRN (19:20)
[2018-09-16] MEDS ORDERED: MAG HYDROX/AL HYDROX/SIMETH 30 ML UNIT-DOSE CUP PO PRN (19:20)
[2018-09-16] MEDS ORDERED: MAGNESIUM HYDROX 2400MG/30ML ORAL SUSPENSION 30 ML CUP PO PRN (19:20)
[2018-09-16] MEDS ORDERED: BUPRENORPHINE/NALOXONE 8 MG/2 MG FILM PACKET SL ONE (19:22)
[2018-09-16] MEDS: QUEtiapine FUMARATE 200 MG TABLET PO SCH (21:46)
[2018-09-16] MEDS: THIAMINE HCL 100 MG TABLET (FP) PO SCH (21:47)
[2018-09-17] MEDS: MELATONIN 5 MG TABLETS PO PRN ×2 (00:47→21:08)
[2018-09-17] MEDS: hydrOXYzine PAMOATE 50 MG CAPSULE (FP) PO PRN (00:47)
[2018-09-17] MEDS: IBUPROFEN 400 MG TABLET (FP) PO PRN (03:05)
[2018-09-17 07:34] LABS: EPI CELLS 0 /HPF (0-5/HPF); HYALINE CASTS 0 /lpf (0-8); PH,URINE 5.5 (5.0-8.0); URINE APPEARANCE CLEAR; URINE BACTERIA 1.4 /hpf (NEGATIVE); URINE BILIRUBIN NEGATIVE (NEGATIVE); URINE COLOR YELLOW; URINE GLUCOSE (UA) NEGATIVE (NEGATIVE); URINE KETONE NEGATIVE (NEGATIVE); URINE LEUK ESTERASE NEGATIVE (NEGATIVE); URINE NITRITE NEGATIVE (NEGATIVE); URINE PROTEIN NEGATIVE (NEGATIVE); URINE RBC 1 /hpf (0-4); URINE UROBILINOGEN 0.2 mg/dL (0.2-1.0); URINE WBC 0 /hpf (0-5)
[2018-09-17] MEDS: PRENATAL VITAMINS W/ FOLIC ACID TABLET (FP) PO SCH (10:11)
[2018-09-17] MEDS: BUPRENORPHINE/NALOXONE 8 MG/2 MG FILM PACKET SL SCH ×2 (10:11→21:09)
[2018-09-17 11:52] LABS: ALBUMIN 3.7 g/dl (3.4-5.0); BILIRUBIN,TOTAL 0.4 mg/dL (0.2-1); CALCIUM 8.9 mg/dL (8.5-10.1); CREATININE 0.9 mg/dL (0.55-1.3); POTASSIUM 4.6 mmol/L (3.5-5.1); TOT PROT 6.8 g/dl (6.4-8.2)
[2018-09-17 12:06] LABS: HEMATOCRIT 39.7 % (35.4-49); HEMOGLOBIN 13.2 GM/dL (11.7-16.9); MCH 28.6 pg (25.7-33.7); MCHC 33.3 g/dl (32.0-35.9); MEAN CELL VOLUME 85.7 fl (80-96); MEAN PLT VOLUME 8.9 fl (7.5-11.1); PLATELET COUNT 192 K/MM3 (134-434); RBC 4.63 M/mm3 (4.00-5.60); RDW 14.9 % (11.9-15.9); WHITE BLOOD COUNT 8.7 K/mm3 (4.0-10.0)
[2018-09-17] MEDS: cloNIDine HCL 0.1 MG TABLET PO PRN (18:37)
[2018-09-17] MEDS: THIAMINE HCL 100 MG TABLET (FP) PO SCH (21:07)
[2018-09-17] MEDS: QUEtiapine FUMARATE 200 MG TABLET PO SCH ×2 (21:09→21:10)
[2018-09-18] MEDS: BUPRENORPHINE/NALOXONE 8 MG/2 MG FILM PACKET SL SCH ×2 (09:55→21:43)
[2018-09-18] MEDS: PRENATAL VITAMINS W/ FOLIC ACID TABLET (FP) PO SCH (09:56)
[2018-09-18] MEDS: QUEtiapine FUMARATE 200 MG TABLET PO SCH ×2 (09:56→21:42)
[2018-09-18] MEDS: hydrOXYzine PAMOATE 50 MG CAPSULE (FP) PO PRN ×2 (09:56→21:42)
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
[2018-09-18] MEDS: IBUPROFEN 400 MG TABLET (FP) PO PRN ×2 (12:50→21:42)
[2018-09-18] MEDS: THIAMINE HCL 100 MG TABLET (FP) PO SCH (21:42)
[2018-09-18] MEDS: MELATONIN 5 MG TABLETS PO PRN (21:42)
[2018-09-19] MEDS: BUPRENORPHINE/NALOXONE 8 MG/2 MG FILM PACKET SL SCH ×2 (09:52→21:08)
[2018-09-19] MEDS: PRENATAL VITAMINS W/ FOLIC ACID TABLET (FP) PO SCH (09:52)
[2018-09-19] MEDS: MELATONIN 5 MG TABLETS PO PRN (21:05)
[2018-09-19] MEDS: THIAMINE HCL 100 MG TABLET (FP) PO SCH (21:06)
[2018-09-19] MEDS: QUEtiapine FUMARATE 200 MG TABLET PO SCH (21:06)
[2018-09-19] MEDS: IBUPROFEN 400 MG TABLET (FP) PO PRN (21:07)
[2018-09-20] MEDS: cloNIDine HCL 0.1 MG TABLET PO PRN (06:24)
[2018-09-20] MEDS: BUPRENORPHINE/NALOXONE 8 MG/2 MG FILM PACKET SL SCH ×2 (09:40→21:40)
[2018-09-20] MEDS: PRENATAL VITAMINS W/ FOLIC ACID TABLET (FP) PO SCH (09:40)
[2018-09-20] MEDS: QUEtiapine FUMARATE 200 MG TABLET PO SCH (21:39)
[2018-09-20] MEDS: THIAMINE HCL 100 MG TABLET (FP) PO SCH (21:39)
[2018-09-20] MEDS: MELATONIN 5 MG TABLETS PO PRN (21:39)
[2018-09-20] MEDS: IBUPROFEN 400 MG TABLET (FP) PO PRN (21:40)
[2018-09-21] MEDS: PRENATAL VITAMINS W/ FOLIC ACID TABLET (FP) PO SCH (09:51)
[2018-09-21] MEDS: BUPRENORPHINE/NALOXONE 8 MG/2 MG FILM PACKET SL SCH ×2 (09:51→21:09)
[2018-09-21] MEDS: IBUPROFEN 400 MG TABLET (FP) PO PRN ×2 (09:52→17:49)
[2018-09-21] MEDS: THIAMINE HCL 100 MG TABLET (FP) PO SCH (21:09)
[2018-09-21] MEDS: QUEtiapine FUMARATE 200 MG TABLET PO SCH (21:09)
[2018-09-21] MEDS: MELATONIN 5 MG TABLETS PO PRN (21:09)
[2018-09-21] MEDS: hydrOXYzine PAMOATE 50 MG CAPSULE (FP) PO PRN (22:59)
[2018-09-22] MEDS: cloNIDine HCL 0.1 MG TABLET PO PRN (02:45)
[2018-09-22 06:55] VITALS: TEMP 98.1
[2018-09-22] MEDS: PRENATAL VITAMINS W/ FOLIC ACID TABLET (FP) PO SCH (09:38)
[2018-09-22] MEDS: BUPRENORPHINE/NALOXONE 8 MG/2 MG FILM PACKET SL SCH (09:38)
[2018-09-22] MEDS: IBUPROFEN 400 MG TABLET (FP) PO PRN (09:39)
[2018-09-22 10:30] VITALS: BP 118/84; PULSE 105
--- NOTE | 2018-09-22 11:18 | PN ---
[facility] Progress Note (SOAP) Subjective: PT DECLINED TO CONTINUE REHAB FOR PERSONAL REASONS STATING HE WANTS TO GO TAKE CARE OF HIS HOUSE PER NURSE ALEX. PT WAS SEEN BY COUNSELOR VAHE LÓPEZ BEFORE EXITING. PT HAS BEEN REFERRED BACK TO [facility] FOR CD AND MAT AFTERCARE TREATMENTS. PT REPORTS HE HAS PRIMARY CARE WITH [facility] ON [address] [place] [address]. PT IS ALERT O X 3. DENIES S/H/I. Objective: Home Medications Medication Instructions Recorded Zolpidem Tartrate [Ambien] 10 mg PO HS 11/21/17 Aspirin [ASA -] 81 tab PO DAILY 09/16/18 Quetiapine Fumarate [Seroquel -] 200 mg PO DAILY 09/16/18 Quetiapine Fumarate [Seroquel -] 400 tab PO HS 09/16/18 Buprenorphine/Naloxone [Suboxone 1 each SL BID #14 packet MDD 2 09/22/18 8Mg/2Mg Sl Film -] Vital Signs - 24 hr 09/22/18 09/22/18 06:54 09:30 Temperature 98.1 F Pulse Rate 85 105 H Respiratory 18 18 Rate Blood Pressure 111/71 118/84 Laboratory Tests 09/16/18 09/17/18 09/17/18 19:55 08:45 08:45 WBC 8.7 RBC 4.63 Hgb 13.2 Hct 39.7 MCV 85.7 MCH 28.6 MCHC 33.3 RDW 14.9 Plt Count 192 MPV 8.9 Sodium 138 Potassium 4.6 Chloride 103 Carbon Dioxide 30 Anion Gap 5 L BUN 19 H Creatinine 0.9 Est GFR (CKD-EPI)AfAm 108.73 Est GFR (CKD-EPI)NonAf 93.82 POC Glucometer Random Glucose 162 H Calcium 8.9 Total Bilirubin 0.4 AST 17 ALT 25 Alkaline Phosphatase 109 Total Protein 6.8 Albumin 3.7 Urine Color Yellow Urine Appearance Clear Urine pH 5.5 D Ur Specific [place] 1.014 Urine Protein Negative Urine Glucose (UA) Negative Urine Ketones Negative Urine Blood Trace Urine Nitrite Negative Urine Bilirubin Negative Urine Urobilinogen 0.2 Ur Leukocyte Esterase Negative Urine WBC (Auto) 0 Urine RBC (Auto) 1 Urine Casts (Auto) 0 U Epithel Cells (Auto) 0 Urine Bacteria (Auto) 1.4 RPR Titer 09/17/18 09/18/18 09/19/18 08:45 06:19 06:07 WBC RBC Hgb Hct MCV MCH MCHC RDW Plt Count MPV Sodium Potassium Chloride Carbon Dioxide Anion Gap BUN Creatinine Est GFR (CKD-EPI)AfAm Est GFR (CKD-EPI)NonAf POC Glucometer 101 111 Random Glucose Calcium Total Bilirubin AST ALT Alkaline Phosphatase Total Protein Albumin Urine Color Urine Appearance Urine pH Ur Specific [place] Urine Protein Urine Glucose (UA) Urine Ketones Urine Blood Urine Nitrite Urine Bilirubin Urine Urobilinogen Ur Leukocyte Esterase Urine WBC (Auto) Urine RBC (Auto) Urine Casts (Auto) U Epithel Cells (Auto) Urine Bacteria (Auto) RPR Titer Nonreactive Assessment: 09/22/18 11:18 NAD Plan: PT SIGNED OUT AMA FOLLOW UP WITH CD AFTERCARE RECOMMENDED. FOLLOW UP WITH PCP FOR MEDICAL MANAGEMENT ABOVE WITHIN 1-2 WEEKS AFTER DISCHARGE.
== END 2018-09-22 12:08 | disposition left against medical advice (07) | DRG 770 ==
LOC: YASAS 14:13 → Y3W 19:20
PROVIDERS: ADMIT Neuromusculoskeletal Medicine & OMM; ATTEND Neuromusculoskeletal Medicine & OMM
PROC: HZ42ZZZ Group Counseling for Substance Abuse Treatment, Cognitive-Behavioral (ICD-10-PCS; principal; 2018-09-16)
DX: F10.20 Alcohol dependence, uncomplicated (principal); F14.20 Cocaine dependence, uncomplicated; F17.210 Nicotine dependence, cigarettes, uncomplicated; F19.282 Other psychoactive substance dependence with psychoactive substance-induced sleep disorder; F31.9 Bipolar disorder, unspecified; I10 Essential (primary) hypertension; B18.2 Chronic viral hepatitis C; R76.11 Nonspecific reaction to tuberculin skin test without active tuberculosis; Z86.19 Personal history of other infectious and parasitic diseases; Z91.5 Personal history of self-harm
CPT/HCPCS: 36415; 71046-TC-FY; 80053; 81003; 82962; 85027; 86593; J0735